=== PATIENT | female | born 1950 | race Caucasian/White ===

== ENCOUNTER 2023-11-27 22:30 | Inpatient (IN) | payer MEDICARE, OTHER, SELFPAY ==
[2023-11-27] VITALS (16 sets, daily range): BP systolic 69–121; BP diastolic 47–73; BMI 16.4
--- NOTE | 2023-11-27 20:17 | ED.GENMED ---
History of Present Illness
General
Chief Complaint: Heart Rate Problem
Time Seen by Provider: 11/27/23 20:17
Travel History
Have you had any contact with someone who has COVID-19?: No
Do you have any symptoms of coronavirus? Fever > 100 degrees, chills, cough, shortness of breath, sore throat, loss of taste or smell, muscle aches, or headache?: No
History of Present Illness
History of Present Illness:
HPI: EMS was called because patient's defibrillator went off. Her care is at [facility] but because she was hypotensive and tachycardic, EMS brought to the closest hospital which was [facility]. She has a history of coronary bypass. She is
not aware of a history of atrial fibrillation. She uses oxygen only at nighttime for history of COPD.
EXAM:
GENERAL: The patient appears chronically ill
HEENT: Moist oral mucosa
CARDIOVASCULAR: No murmurs, tachycardic heart rate, irregular rhythm, No chest wall tenderness, weak pulses noted
PULMONARY: No respiratory distress, breath sounds are clear and equal
ABDOMEN: Soft with no peritoneal signs, no tenderness
NEUROLOGIC: Excellent strength all extremities, no coordination deficits
PSYCHIATRIC: Appropriate mental status, normal insight and judgement however she seems to lack some knowledge of medical issues and medical history
EXTREMITIES: Nontender, no edema, moves all extremities equally
SKIN: No rash, no lesions
TIME OF INITIAL ENCOUNTER:
8:15 PM
NUMBER AND COMPLEXITY OF PROBLEMS ADDRESSED AT THE ENCOUNTER
� Chronic conditions affecting care: COPD, CHF, high blood pressure, CAD/CABG
� Acute Exacerbation and/or Progression of Chronic Illness: This is an acute problem
� Differential Diagnosis includes: AICD event, electrolyte abnormality, ACS, new atrial fibrillation with RVR
AMOUNT AND/OR COMPLEXITY OF DATA TO BE REVIEWED AND ANALYZED
� I performed an independent evaluation of and my interpretation is:
EKG: A-fib with RVR ventricular rate of 166, lateral ST abnormality that may be rate related, no old to compare
CT:
X-rays: The chest x-ray does show an abnormality in the right upper lobe however there is also superimposed chronic appearing disease.
Laboratory Studies: White count 17.2, hemoglobin 13.4, chemistries relatively unremarkable but troponin 0.126, BNP is 2000
Other:
� Review of other/old records: No old records for review in [facility] however we are in the process of contacting [facility] for records as of 8:20 PM
� Clinical information was obtained by an independent historian:
� Prescriptions/Medications Considered but not given: Considered digoxin however after discussion with cardiology we agreed to try amiodarone instead. I also considered antibiotics given the white count with chest x-ray read
however the patient has no pneumonia type of symptoms. Will defer need for antibiotics to hospitalist.
� Further testing considered but not performed:
RISK OF COMPLICATIONS AND/OR MORBIDITY OR MORTALITY OF PATIENT MANAGEMENT
� Social determinants of health affecting care: Lives at home
� Discussion with other providers: Discussed with Dr. Cook (see below), Dr. Hernandes for admission at 9:40 PM
� Escalation of care including admission/observation vs risk of discharge considered: We are attempting to obtain records from [facility]. It does not appear that she is on any anticoagulation. Fitfully does indicate the
patient received ATP for VT at about 5:30 PM this evening. Another attempt of ATP was performed by her device and then she received a 36 J shock. She arrived hypotensive for EMS and has been hypotensive here. She was on escalating doses of
Cardizem however this did not help the rate however blood pressure did seem to improve somewhat. I then tried beta-sasha and it seemed to help more that went down to the 130s. I consider digoxin however after discussion with Dr. Cook, we
decided to try amiodarone. She was given 2 - 500 mL saline boluses due to low blood pressure. She does have a history of heart failure and will try to hold off on further fluids.
Phy Exam
Physical Exam
Physical Exam:
See HPI
Course
Orders/Labs/Results
Orders:
Orders
11/27/23 20:09
Electrocardiogram (*1) Urgent
Reason for Study: Bradycardia / Tachycardia
11/27/23 20:10
EKG- Treatment ONCE
11/27/23 20:17
BNP [NT-proBNP] Urgent
Complete Blood Count/With Diff Urgent
Comprehensive Metabolic Panel Urgent
Magnesium Urgent
Troponin I Urgent
CR Chest Portable - 1 View Urgent
Comment:
Reason For Exam: sob
Reason Study Needs to be Portable: Unable to Transport
11/27/23 20:19
0.9% Sodium Chloride 500 ml [Nss] 500 ml IV BOLUS
Diltiazem HCl [Cardizem] 5 mg IV NOW STA
11/27/23 20:20
Diltiazem 125 mg/125 ml Nss [Cardizem] 125 mg in 125 ml .ROUTE .STK-MED
Diltiazem HCl [Cardizem] 25 mg .ROUTE .STK-MED ONE
11/27/23 20:30
Diltiazem 125 mg/125 ml Nss [Cardizem] 125 mg in 125 ml IV PER PROTOCOL
Initial dose in mg/hr, then titrate:: 5
Titrate to keep:: Heart rate 80-100 bpm
Titrate by mg/hr:: 5 mg/hr
Frequency of titrations (minutes):: 15
Maximum dose in mg/hr:: 15
11/27/23 21:10
Metoprolol [Lopressor] 5 mg .ROUTE .STK-MED ONE
11/27/23 21:11
Metoprolol [Lopressor] 2.5 mg IV NOW STA
11/27/23 21:17
Digoxin [Lanoxin] 125 mcg IV NOW STA
11/27/23 21:32
Electrocardiogram (*1) Urgent
Reason for Study: Atrial Fibrillation
EKG- Treatment ONCE
11/27/23 21:45
Amiodarone [Cordarone] 900 mg DEXTROSE 5% PVC-free BAG [D5W PVC-free BAG] 500 ml IV PER PROTOCOL
Initial Dose in mg/min:: 1
Duration of initial dose (hours):: 6
Subsequent dose in mg/min:: 0.5
Duration of subsequent dose (hours):: 18
Maximum dose in mg/min:: 1
Hold and notify provider if:: Heart rate < 60 BPM or SBP < 90 mmHg or MAP < 60 mmHg
Abnormal Lab Results
11/27/23
20:17
WBC 17.2 H 10^3/uL
(4.8-10.8)
RBC 4.06 L 10^6/uL
(4.20-5.40)
MCH 33.0 H pg
(27.0-31.0)
Abs Immat Gran (auto) 0.1 H 10^3/uL
(0-0.05)
Absolute Neuts (auto) 13.9 H 10^3/uL
(1.4-6.5)
Absolute Monos (auto) 1.5 H 10^3/uL
(0.1-0.6)
Neutrophils % 80.7 H %
(42.2-75.2)
Lymphocytes % 8.8 L %
(20.5-51.1)
Carbon Dioxide 21 L mmol/L
(22-30)
BUN 27 H mg/dl
(7-17)
Glucose 122 H mg/dl
(70-99)
Troponin I 0.126 H* ng/ml
11/27/23 20:17
11/27/23 20:17
Vital Signs
Initial and Last Documented VS:
Initial Vital Signs
Temp Pulse Resp BP
98.0 F 161 24 100/73
11/27/23 20:11/27/23 20:01 11/27/23 20:01 11/27/23 20:01
Last Documented Vital Signs
Temp Pulse Resp BP Pulse Ox
98.0 F 81 32 71/50 95
11/27/23 20:01 11/27/23 21:33 11/27/23 21:33 11/27/23 21:33 11/27/23 21:33
*Critical Care Note
Total Time (30-74mins, 75-104mins- exclusive of procedures): 65 minutes
comment:
The patient has remained hypotensive throughout much of her stay in the ED. We tried IV calcium channel sasha, IV beta-sasha, considered IV digoxin however after discussion with cardiology ultimately will be given amiodarone. She was given IV
fluids emergently as she was hypotensive. We also interrogated the device emergently. Vital signs were very closely monitored.
ED Attending Note
-
Portions of this chart may have been created with voice recognition software.� Occasional wrong word or��sound alike� substitutions may have occurred due to the inherent limitations of voice recognition software.
Discharge Plan
Departure
Patient Disposition: Admit
Date of Disposition: 11/27/23
Time of Disposition: 21:38
Presentation/result/management discussed w/ accepting MD/DO: Hospitalist
Discharge Problem:
Atrial fibrillation with rapid ventricular response
Prescriptions:
No Action
multivitamin Tablet
1 tab PO DAILY
atorvastatin 40 mg Tablet
40 mg PO HS
carvedilol 6.25 mg Tablet
6.25 mg PO BID
enalapril maleate 5 mg Tablet
5 mg PO BID
cilostazol 50 mg Tablet
50 mg PO BID
aspirin 81 mg Tablet,Delayed Release (Dr/Ec)
81 mg PO DAILY
citalopram 20 mg Tablet
30 mg PO HS
pantoprazole 40 mg Tablet,Delayed Release (Dr/Ec)
40 mg PO DAILY
furosemide 20 mg Tablet
20 mg PO DAILY
Interventions
Interventions:
*Risk Screen - Suicide Last Done: 11/27/23 20:01
*General Assessment Last Done: 11/27/23 20:01
*Neglect/Abuse Screening Last Done: 11/27/23 20:01
*ED COVID-19 Vaccine History Last Done: 11/27/23 20:01
ED- Cardiac Assessment Last Done: 11/27/23 20:46
ED- Pulmonary Assessment Last Done: 11/27/23 20:46
Discharge Date and Time
Print Language: WOLOF
[2023-11-27] MEDS: CARDIZEM 5 MG IV (20:21)
[2023-11-27] MEDS: NSS 500 IV (20:23)
[2023-11-27] MEDS: CARDIZEM 125 IV (20:23)
[2023-11-27 20:27] LABS: % Basophils 0.4 % (0-2); % Eosinophils 0.9 % (0-6); % Immature Granulocytes 0.3 % (0-0.5); % Lymphocytes 8.8 % (20.5-51.1); % Monocytes 8.9 % (1.7-9.3); % Neutrophils 80.7 % (42.2-75.2); Absolute Basophils 0.1 10^3/uL (0-0.2); Absolute Eosinophils 0.2 10^3/uL (0-0.7); Absolute Immature Granulocytes 0.1 10^3/uL (0-0.05); Absolute Lymphocytes 1.5 10^3/uL (1.2-3.4); Absolute Monocytes 1.5 10^3/uL (0.1-0.6); Absolute Neutrophils 13.9 10^3/uL (1.4-6.5); Hematocrit 38.2 % (37.0-47.0); Hemoglobin 13.4 g/dL (12.0-16.0); Mean Corp Hgb Conc. 35.1 g/dL (33.0-37.0); Mean Corpuscular Volume 94.1 fL (81.0-99.0); Mean Platelet Volume 9.1 fL (7.4-10.4); Nucleated Red Blood Cells % 0 %; Platelet Count 209 10^3/uL (130-400); Red Blood Cell Count 4.06 10^6/uL (4.20-5.40); Red Cell Dist. Width 12.2 % (11.5-14.5); White Blood Cell Count 17.2 10^3/uL (4.8-10.8)
[2023-11-27 20:40] LABS: ALT (SGPT) 15 U/L (0-35); AST (SGOT) 24 U/L (14-36); Albumin 3.8 g/dl (3.5-5.0); Alkaline Phosphatase 109 U/L (38-126); Blood Urea Nitrogen 27 mg/dl (7-17); Calcium 9.4 mg/dl (8.4-10.2); Carbon Dioxide 21 mmol/L (22-30); Chloride 101 mmol/L (98-107); Glucose 122 mg/dl (70-99); Magnesium 1.8 mg/dl (1.6-2.3); Potassium 3.6 mmol/L (3.5-5.1); Sodium 136 mmol/L (135-145); Total Protein 6.7 g/dl (6.3-8.2); eGFR > 60.00
[2023-11-27 20:56] LABS: Troponin I 0.126 ng/ml
[2023-11-27] MEDS: LOPRESSOR 2.5 MG IV (21:11)
[2023-11-27 21:13] LABS: NT-proBNP 2000 pg/ml
--- NOTE | 2023-11-27 21:40 | HPS.HSE ---
Family Physician
-
Family Physician:
Chief Complaint
-
atrial fib with RVR
History of Present Illness
73 year old with PMH for CAD, HTN, HLD, anxiety, GERD,COPD presented to us with as her Defib went off. Her HR was in 160's and BP low in 80's. patient denied any palpitation, chest pain, sob. denied NELSON, dizzy or syncopal episode. Patient denied
runny nose, congestion, cough. Patient denied abdominal pain, nausea, vomiting, diarrhea. Patient denied dysuria hematuria.
Patient uses 2 L of oxygen at nighttime. At present patient requiring 4 L of oxygen oxygenating 92-94.
Patient was noted A-fib with RVR on arrival. Patient received dose of Cardizem, digoxin with no relief in her symptoms. Patient also ordered amiodarone. Admitting for further management. at present HR controlled in 80's
Medical History
Past Medical History
Past Medical History: Reports Other
Additional Past Medical History:
Coronary artery disease
Hyperlipidemia
Hypertension
Depression
GERD
Past Surgical History: Reports Other
Additional Past Surgical History:
Coronary artery bypass graft
Social History
Tobacco: Smoker (2 to 3 cigarettes a week)
Alcohol: None
Drug: None
Personal:
Living: With Family
Family History
Family History: Not pertinent
Allergies / Home Medications
Allergies reflects when Allergies were last updated in [facility].
Home Medications with original date entered in [facility]
Allergy/Medication List:
Allergies
Allergy/AdvReac Type Severity Reaction Status Date / Time
No Known Allergies Allergy Unverified 11/27/23 20:12
Home Medications
aspirin 81 mg tablet,delayed release 81 mg PO DAILY 11/27/23
atorvastatin 40 mg tablet 40 mg PO HS 11/27/23
carvedilol 6.25 mg tablet 6.25 mg PO BID 11/27/23
cilostazol 50 mg tablet 50 mg PO BID 11/27/23
citalopram 20 mg tablet 30 mg PO HS 11/27/23
enalapril maleate 5 mg tablet 5 mg PO BID 11/27/23
furosemide 20 mg tablet 20 mg PO DAILY 11/27/23
multivitamin 1 tab PO DAILY 11/27/23
pantoprazole 40 mg tablet,delayed release 40 mg PO DAILY 11/27/23
Review of Systems
-
Constitutional: Reports No Symptoms
EENT: Reports No Symptoms
Respiratory: Reports No Symptoms
Cardiac: Reports No Symptoms
Abdomen/GI: Reports No Symptoms
: Reports No Symptoms
Musculoskeletal: Reports No Symptoms
Skin: Reports No Symptoms
Neurological: Reports No Symptoms
Endocrine: Reports No Symptoms
Hematologic/Lymphatic: Reports No Symptoms
Psych: Reports No Symptoms
Physical Exam
Vital Signs
Vital Signs
Temp Pulse Resp BP Pulse Ox
98.0 F 81 32 71/50 95
11/27/23 20:01 11/27/23 21:33 11/27/23 21:33 11/27/23 21:33 11/27/23 21:33
Physical Exam
General: Well Developed, Well Nourished and No Apparent Distress
HEENT: NormoCephalic, Moist mucous membranes and Atraumatic
Respiratory: Rales
Cardiac: S1/S2 and Regular Rhythm; No Murmur or Rub
GI: Soft, Non Tender, Non Distended and Normal Bowel Sounds; No Organomegaly
Rectal: Deferred by Provider
Musculoskeletal: No Clubbing, No Cyanosis and No Edema
Skin: No Rash
Neuro: AO x 3 and Nonfocal/grossly intact
Psych: Calm
Laboratory Results
-
11/27/23 20:17
11/27/23 20:17
Laboratory Results
Total Bilirubin 1.0 mg/dl (0.2-1.3) 11/27/23 20:17
AST 24 U/L (14-36) 11/27/23 20:17
ALT 15 U/L (0-35) 11/27/23 20:17
Alkaline Phosphatase 109 U/L (38-126) 11/27/23 20:17
Troponin I 0.126 ng/ml H* 11/27/23 20:17
Data Reviewed
-
Diagnostic Radiology: Report Reviewed by me
Lab Data: Labs Reviewed by me
Impression/Plan
-
# New onset atrial fib with RVR
-Received a dose of digoxin, Cardizem, metoprolol, Cardizem drip in ER
-at Present EKG with normal sinus rhythm
-EKG on arrival A-fib with RVR
-Pacemaker interrogated in the ER with VT and NSVT
-Amiodarone continued as per cardiology with PO overlap 200mg bid
-Eliquis 5 twice a day
-obtain ECHO
-Cardiology consult
# Acute on chronic hypoxic respiratory failure likely from pneumonia
-chest x ray with Right upper lobe airspace disease suspicious for pneumonia. Mild diffuse interstitial prominence may reflect pneumonitis. Cannot rule out component of underlying chronic interstitial lung disease.
-wbc 17.2
-patient is 02 dependant at home, uses 2l at night
-Started on IV ceftriaxone and doxycycline
-continue supplemental oxygen to keep sat >92
-wean as tolerated
-nebs prn for sob/wheezing
-Tylenol prn for fever
#elevated trop likely demand ischemia
-trop 0.126
-no c/of chest pain
-trend trop
#hxt of COPD
-not in acute exacerbation
-ctm
#hypotension/ hxt of htn
-BP soft in ER
-fluids continued
-hold enalapril and Coreg
-ctm
#questionable hxt of CHF
-BNP 2000
-not in acute exacerbation
-strict I &O
-daily weight
-obtain ECHO
-hold Lasix
#hxt of CAD
-aspirin continued
#HLD
-statin continued
#GERD
-PPI continued
#DVT prophylaxis
-Eliquis
#CODE status
-full code
[2023-11-27] MEDS: CORDARONE 518 MG IV (22:05)
--- NOTE | 2023-11-27 22:26 | W.PN.UPDATE ---
Update Note
Progress Note Update
This is an addendum to the H&P written by ASTRID White on 11/27/2023.
Patient seen and examined independently with PLACING JUDGE.� 73-year-old female past medical history of heart failure, presumed HFrEF with ICD, CAD status post CABG, PAD, anxiety/depression, presenting with ICD shock.� No symptoms preceding ICD shock.� No
symptoms currently.�
Patient was initially found to have heart rate in 160s.� EKG showed atrial fibrillation with RVR which is new onset.� Labs showing leukocytosis, cardiac BNP of 2000, troponin of 0.126.� Chest x-ray shows right upper lobe airspace disease suspicious
for pneumonia.
Interrogation of ICD revealed attempt of ATP at 17:04 and 17:09 then 36J.� EMS had given Cardizem although patient was hypotensive.� Patient was given IV fluids, doses of IV Cardizem and beta-sasha in ER without improvement.� She was also given
digoxin.� Cardiology recommended IV amiodarone drip with overlap of oral amiodarone.� Patient appears to be in sinus rhythm at this time.� Cardizem weaned off.� Eliquis to be started.� Can use as needed Lopressor as adjunct as needed.� Hold
enalapril, Lasix and Coreg.� Check echocardiogram.� Request records from [place] [facility].
Will start ceftriaxone/doxycycline for commune acquired pneumonia.
[2023-11-27] MEDS: ROCEPHIN 1000 MG IV (22:28)
[2023-11-27] MEDS: ELIQUIS 5 MG PO (22:28)
--- NOTE | 2023-11-27 23:36 | PTCARENOTE ---
pt stand by assist into 2246- admission completed. Amio gtt running.
[2023-11-27] MEDS: VIBRAMYCIN 260 MG IV (23:46)
[2023-11-28] VITALS (13 sets, daily range): BP systolic 78–155; BP diastolic 57–95; BMI 16.5; BMI 16.4
[2023-11-28] MEDS: NSS 1000 IV (00:49)
--- NOTE | 2023-11-28 03:12 | DOWNTIME ---
There was a [employer] Client [employer] Fitter Downtime on 11/27/2023 from 0100 to 11/28/2023 at 0300. Downtime documentation of patient's care, including medication administrations, has been reconciled in the electronic record per guidelines. Refer to the
patient's paper chart under the miscellaneous tab to see printed paper medication records and downtime forms.
[2023-11-28] MEDS: DUONEB 3 ML INH (04:07)
[2023-11-28] MEDS: TYLENOL 650 MG PO (04:49)
--- NOTE | 2023-11-28 04:53 | PTCARENOTE ---
Around 0310 pt c/o worsening SOB. On assessment, pt tachypneic with increased effort. Crackles can now be heard 1/2 way up b/l lungs with increased wheezing. TT DIRECTOR OF FINANCIAL REPORTING Amarilys George, NSS placed on standby - will monitor pressure closely. Respiratory
contacted for PRN breathing treatment.
At 0441, pt had 12 beat run of VT. Pt asymptomatic, BP 99/67.
Pt c/o 5/10 headache located in the front of head. PRN tylenol administered.
[2023-11-28 04:58] LABS: Hematocrit 36.2 % (37.0-47.0); Hemoglobin 12.4 g/dL (12.0-16.0); Mean Corp Hgb Conc. 34.3 g/dL (33.0-37.0); Mean Corpuscular Hgb 32.9 pg (27.0-31.0); Mean Platelet Volume 8.9 fL (7.4-10.4); Platelet Count 197 10^3/uL (130-400); Red Blood Cell Count 3.77 10^6/uL (4.20-5.40); Red Cell Dist. Width 12.3 % (11.5-14.5); White Blood Cell Count 13.7 10^3/uL (4.8-10.8)
[2023-11-28 05:24] LABS: Blood Urea Nitrogen 25 mg/dl (7-17); Calcium 9.1 mg/dl (8.4-10.2); Carbon Dioxide 24 mmol/L (22-30); Chloride 102 mmol/L (98-107); Estimated Creatinine Clearance 59 ml/min; Glucose 123 mg/dl (70-99); HDL Cholesterol 51 mg/dl; LDL Cholesterol, Calculated 60 mg/dl; Potassium 3.9 mmol/L (3.5-5.1); Sodium 136 mmol/L (135-145); Total Cholesterol 129 mg/dl (50-199); Triglyceride 94 mg/dl (10-149); Very Low Density Lipoprotein 18 mg/dl (0-30); eGFR > 60.00
[2023-11-28 05:55] LABS: TSH Reflex To Free T4 1.22 uIU/ml (0.47-4.68)
[2023-11-28] MEDS: ASPIR LOW (ENTERIC COATED) 81 MG PO (08:05)
[2023-11-28] MEDS: PLETAL 50 MG PO ×2 (08:05→19:25)
[2023-11-28] MEDS: ELIQUIS 5 MG PO (08:05)
[2023-11-28] MEDS: PROTONIX 40 MG PO (08:05)
--- NOTE | 2023-11-28 08:12 | W.PN.HOSP.TC ---
Today's Communication/Plan
-
see bold
Assessment / Plan
Assessment / Plan
Gen: NAD, AAOx3, appears chronically ill/malnourished.
Eyes: EOMI, PERRLA, no scleral icterus.
Neck: supple.
CV: RRR, +S1/S2, no m/r/g.
Resp: Bilateral end expiratory wheezes, slightly decreased air exchange
Abd: +BS, soft, NT, ND
Skin: No rashes.
Neuro: CN 2-12 intact, non-focal.
Psych: Normal mood and affect.
CXR: Right upper lobe airspace disease suspicious for pneumonia. Mild diffuse interstitial prominence may reflect pneumonitis. Cannot rule out component of underlying chronic interstitial lung disease.
Afib with RVR:
-ICD interrogation showed attempt of ATP @ 1704 and 1709 on 11/27/23. For formal interrogation today.
-EMS gave Cardizem but the patient became hypotensive. This was followed by IV fluids and IV Cardizem and beta-sasha in the ER without improvement. Patient also given digoxin.
-Patient was started on amiodarone gtt, continue
-cont Eliquis
-check echo
-discussed with cardiology
Elevated Trop:
-Trop 17.4
-started on Eliquis prior (no heparin gtt for now)
-h/o CAD, cont ASA/statin
-BB on hold with hypotension
-will need cath once medically optimized
Possible RUL PNA:
-Leukocytosis could be reactive, patient afebrile
-currently on Rocephin/Doxy
-check procal
Acute hypoxemic respiratory insufficiency:
-h/o 50 years tobacco abuse disorder
-with wheezing suspect acute COPD exac
-start Decadron 4mg IV Q6H
-Atrovent/Xopenex PRN (give both meds now)
-See plan for possible RUL PNA above
-c/s pulm
Other problems:
Likely h/o HFrEF: Check echo
CAD
HLD: Cont statin
GERD: Cont PPI
COPD
Essential hypertension: BB on hold with hypotension
FULL/Eliquis
Total time spent on today's encounter was 53 minutes which included time spent in counseling the patient/family regarding diagnosis and treatment plan as listed above, goals of care, and symptom management. Case was discussed with nursing staff,
specialists, and care coordinators/case management. All labs and imaging personally reviewed by me. Remainder the time spent in detailed review of previous records, lab data, imaging, and other medical provider documentation.
Anticipated Discharge: > 48 hours
Subjective/Interval History
-
Date of Service: November 28, 2023
Denies CP. c/o SOB. 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
Objective Data
-
Labs:
Laboratory Results
11/27/23 11/28/23
20:17 04:35
WBC 17.2 H 13.7 H
Hgb 13.4 12.4
Hct 38.2 36.2 L
Plt Count 209 197
Sodium 136 136
Potassium 3.6 3.9
Chloride 101 102
Carbon Dioxide 21 L 24
BUN 27 H 25 H
Creatinine 0.8 0.6
Glucose 122 H 123 H
Calcium 9.4 9.1
Total Bilirubin 1.0
AST 24
ALT 15
Alkaline Phosphatase 109
Vital Signs:
Vital Signs
Temp Pulse Resp BP Pulse Ox
98.3 F 74 24 121/76 98
11/28/23 07:46 11/28/23 08:00 11/28/23 07:46 11/28/23 07:48 11/28/23 07:48
I&O
11/27/23 11/28/23 11/29/23
06:59 06:59 06:59
Intake Total 480 / 480
Balance 480 / 480
--- NOTE | 2023-11-28 09:11 | CON.CAR ---
Addendum entered and electronically signed by Christa Simon PA-C 11/28/23 14:16:
Records obtained and reviewed from [facility] cardiology. Last echo from 2020 with EF 60 to 65%, mild MR, mild to moderate TR, RVSP 30 to 35 mmHg, trace AI. Noninvasive arterial Doppler from 2020 with findings suggestive of right iliac stenosis resulting
in mild hemodynamic impairment at rest and left popliteal/tibial stenosis resulting in moderate hemodynamic impairment at rest. CT of the chest without contrast from 02/2023 with interval development of new slightly spiculated 18 x 12 mm right upper
lobe nodule, with concern for primary bronchogenic carcinoma with several additional right lung nodules which have remained stable compared to prior from 2021. Office note from 06/19/2023 reviewed. Patient with prior ischemic cardiomyopathy with EF
as low as 25 to 30%, however subsequently normalized. She had CABG x 2 with SOLER to LAD and SVG to OM 04/2017 and underwent [employer] single-chamber ICD placement 06/2017. She has PAD on cilostazol, not felt to be candidate for
percutaneous stenting. By last device interrogation . She had previously been on amiodarone which had been discontinued in the setting of her underlying lung disease and absence of arrhythmia, however is noted if were to have recurrence of
arrhythmia would consider resuming.
Addendum entered and electronically signed by Isaias Lowery MD 11/28/23 10:36:
I saw and examined the patient.
The Admissions Recruiter's note was reviewed and I agree with the note.
Comment:
GEN: No distress, awake, Ox3
HEENT: supple, anicteric, mmm
LUNGS: bilat rhonchi
CV: Reg, S1/S2, 1/6 syst LSB, no gallop
ABD: soft, BS+, NT/ND
EXT: No edema
NEURO: Gross non-focal
SKIN: No rash
Plan:
She has a past medical history of coronary artery disease status post CABG, ICD, hypertension, COPD, followed at [place] who presents with her ICD firing for atrial fibrillation. She had ATP attempts and an ICD shock. She was placed on IV
amiodarone and troponin was found to be 17. She denies any chest pains or shortness of breath prior to her event. She states she overall has been relatively stable before this.
Cardiac troponin peaked at 17 and is improving. She is back in sinus rhythm now. ECG with normal sinus rhythm with anterolateral ST depression. She is currently pain-free.
Continue IV amiodarone. Continue aspirin. Will add back low-dose Coreg 3.125 mg twice daily and follow blood pressure.
I suspect she may be mildly volume overloaded will give Lasix 20 mg IV x 1.
Check echocardiogram today.
Will plan on cardiac catheterization in a.m. to evaluate coronary anatomy. Hold Eliquis.
Continue atorvastatin.
Original Note:
Consultation
Consultation Request
Date/Time Consultation Performed: 11/28/23
Requesting Provider: Dr. Deluna
Performing Provider: Christa Simon PA-C for Dr. Lowery
Reason for Consultation: ICD shock
Medical History
-
Chief Complaint: ICD shock
History of Present Illness:
Patient is a 73 yo F with PMH of CAD s/p CABG, presumed ICM s/p [employer] ICD, HTN,HLD, COPD with ongoing occasional tobacco use who presented to via EMS due to ICD shock. Patient states she returned home from vacation on Sunday. States
on Sunday she was sluggish and with upset stomach so was around the house all day. She states yesterday she was sitting drying silverware when suddenly she got shocked by her device. No preceding CP, SOB, lightheadedness/dizziness. She called EMS
and they brought her to due to 'traffic', although she states all of her care is at [place]. She was given cardizem en route due to elevated HR however was then noted to be hypotensive. Upon arrival to ER had device transmission which showed ATP
attempt at 17:04 and 17:09 followed by shock x1. By EKG was in narrow complex tachycardia consistent with afib with RVR. She was started on IV amiodarone. Trop up to 17 this morning. Remains without CP. Cardiology consulted for evaluation. She
states she was previously told by [facility]MS she was shocked once before, however did not feel it.
PMH:
CAD s/p CABG
presumed ICM s/p [employer] ICD
HTN
HLD
COPD
ongoing occasional tobacco use
Past Medical History
Past Medical History: Other (in HPI)
Social History
Tobacco: Smoker
Alcohol: None
Drug: None
Personal:
Living: With Family
Family History
Family History: CAD (DC in mother at 59)
Allergies / Home Medications
Allergy/AdvReac Type Severity Reaction Status Date / Time
No Known Allergies Allergy Unverified 11/27/23 20:12
�Medication �Instructions �Recorded �Confirmed �Type
aspirin 81 mg tablet,delayed 81 mg PO DAILY 11/27/23 11/27/23 History
release
atorvastatin 40 mg tablet 40 mg PO HS 11/27/23 11/27/23 History
carvedilol 6.25 mg tablet 6.25 mg PO BID 11/27/23 11/27/23 History
cilostazol 50 mg tablet 50 mg PO BID 11/27/23 11/27/23 History
citalopram 20 mg tablet 30 mg PO HS 11/27/23 11/27/23 History
enalapril maleate 5 mg tablet 5 mg PO BID 11/27/23 11/27/23 History
furosemide 20 mg tablet 20 mg PO DAILY 11/27/23 11/27/23 History
multivitamin 1 tab PO DAILY 11/27/23 11/27/23 History
pantoprazole 40 mg tablet,delayed 40 mg PO DAILY 11/27/23 11/27/23 History
release
Review of Systems
-
History Source: Patient
All other systems: Negative unless noted
Physical Exam
Vital Signs
Temp Pulse Resp BP Pulse Ox
98.3 F 74 24 121/76 98
11/28/23 07:46 11/28/23 08:00 11/28/23 07:46 11/28/23 07:48 11/28/23 07:48
Lab Results
11/28/23 04:35
11/28/23 04:35
Troponin I 17.400 ng/ml H* 11/28/23 04:35
Adv-C-Ctafsstwyaf Pept 2000 pg/ml 11/27/23 20:17
Physical Exam
General: Other (tachypneic, pursed lip breathing, on supp O2)
HEENT: Normocephalic, Anicteric and Moist Mucous Membranes
Respiratory: Wheezes
Cardiac: S1/S2 and Regular Rhythm
GI: Normal Bowel Sounds
Musculoskeletal: No Clubbing, No Cyanosis and No Edema
Skin: Warm and Dry
Neuro: AO x 3
Impression / Plan
-
Primary Supervising Librarian: Dr. Olivia of [facility]
Assessment:
Presentation with attempted ATP x2, then ICD shock
Hypotension
Atrial fibrillation with RVR on arrival, concern for inappropriate shock
Elevated troponin
Leukocytosis
CAD s/p CABG
presumed ICM s/p [employer] ICD
HTN
HLD
COPD, with likely acute exacerbation
ongoing occasional tobacco use
ECHO 11/28/23: pending
Plan:
-Patient presents with ICD shock. Transmission from ER showed attempted ATP x 2 followed by ICD shock x 1. Upon arrival patient was noted to be in atrial fibrillation with rapid ventricular response
-For formal device interrogation today
-Requested records from [facility] for review
-Currently in sinus rhythm with brief runs of A-fib/A. tach, as well as brief runs of wide-complex tachycardia, possible NSVT.
-Continue IV amiodarone. follow K/mag
-Holding Eliquis, dose given 11/27 AM. Would consider transitioning to IV heparin tonight in prep for cath
-Patient remains without chest pain, however EKG with lateral T wave depression and troponin up to 17. Will need cardiac catheterization, likely in a.m. procedure discussed with patient today
-On outpatient aspirin and cilostazol
-Check echo
-Outpatient carvedilol, Lasix, and enalapril currently on hold with hypotension on arrival.
-proBNP 1999. CXR without evidence of acute CHF.
-LDL 60 on lipitor 40mg HS, continue
-There was concern for pneumonia on arrival. She does report cough, however is afebrile. Pro-Adolfo pending. Currently on antibiotics. Primary service adding steroids, as concern for COPD exacerbation with diffuse wheezing, and pulmonary to
evaluate.
-tobacco cessation advised
-Discussed with nursing, hospitalist
Data Reviewed
-
EKG: Tracing Personally Visualized and interpreted
Radiology: Report Reviewed by me
Labs: Labs Reviewed by me
Old Records: Requested and Reviewed
[2023-11-28 09:45] LABS: Procalcitonin 0.58 ng/ml (0.0-0.25)
[2023-11-28] MEDS: ATROVENT NEBULES 0.5 MG INH (09:50)
[2023-11-28] MEDS: XOPENEX 1.25 MG INHALANT SOLUTION INH (09:50)
--- NOTE | 2023-11-28 10:02 | CM ---
Reviewed chart. Met with Mrs. Jimenez to review discharge plans. She states prior to admission she resides with her spouse in a two story townhouse with three steps to enter. She states she has a full flight of steps to get to bedroom/full
bathroom. She states she has a powder room on the first floor. She states prior to admission she was independent with ambulation and adls. She states she has home 02 at 2 liters that she uses at night. She states she has has [facility] in the
past. She states she has a prescription plan with [employer] and uses [facility]. We reviewed information of advanced directive. Gave her a copy of [place] Advanced Directive. Medical work-up in progress. The discharge plan is to
return home with her spouse when medically stable.
[2023-11-28] MEDS: DECADRON 4 MG IV ×3 (10:16→20:25)
[2023-11-28] MEDS: COREG 3.125 MG PO ×2 (10:50→19:25)
[2023-11-28] MEDS: VIBRAMYCIN 260 MG IV ×2 (11:50→22:43)
--- NOTE | 2023-11-28 12:02 | CON.PUL ---
Consultation
Consultation Request
Date/Time Consultation Requested: 11/28/23
Date/Time Consultation Performed: 11/28/23
Performing Provider: Kristina
Reason for Consultation: SOB
Medical History
-
History of Present Illness:
73 year old with PMH for CAD, HTN, HLD, anxiety, GERD, COPD presented to ER with defibrillator activation at home. In ER, she was noted to have HR in 160s and low systolic BP of 80s. Patient denied any active complaints including palpitations,
chest pain, or SOB.
She has a history of COPD, chronically using 2 L of oxygen at nighttime. At present patient requiring 4 L of oxygen oxygenating 92-94%.
Patient was noted A-fib with RVR on arrival. Patient received dose of Cardizem, digoxin with no relief in her symptoms. She is admitted to IVU.
CXR with diffuse lung changes, RUL opacity noted suspicious for PNA.
She follows with Dr Jacob Goyal.
Past Medical History
Past Medical History: Other (see list below)
Social History
Tobacco: Former Smoker
Alcohol: None
Drug: None
Family History
Family History: Reviewed & Not Pertinent
Allergies / Home Medications
Allergies
Allergy/AdvReac Type Severity Reaction Status Date / Time
No Known Allergies Allergy Unverified 11/27/23 20:12
Home Medications
�Medication �Instructions �Recorded �Confirmed �Last Taken �Type
aspirin 81 mg tablet,delayed 81 mg PO DAILY 11/27/23 11/27/23 11/27/23 History
release
atorvastatin 40 mg tablet 40 mg PO HS 11/27/23 11/27/23 11/26/23 History
carvedilol 6.25 mg tablet 6.25 mg PO BID 11/27/23 11/27/23 11/27/23 History
cilostazol 50 mg tablet 50 mg PO BID 11/27/23 11/27/23 11/27/23 History
citalopram 20 mg tablet 30 mg PO HS 11/27/23 11/27/23 11/26/23 History
enalapril maleate 5 mg tablet 5 mg PO BID 11/27/23 11/27/23 11/27/23 History
furosemide 20 mg tablet 20 mg PO DAILY 11/27/23 11/27/23 11/27/23 History
multivitamin 1 tab PO DAILY 11/27/23 11/27/23 11/27/23 History
pantoprazole 40 mg tablet,delayed 40 mg PO DAILY 11/27/23 11/27/23 11/27/23 History
release
Review of Systems
-
History Source: Patient
All other systems: Negative unless noted
Vitals / Labs / Diagnostic Testing
Vital Signs
Temp Pulse Resp BP Pulse Ox
98.4 F 78 22 122/72 97
11/28/23 11:21 11/28/23 11:15 11/28/23 11:21 11/28/23 10:50 11/28/23 11:21
Lab Data
11/28/23 04:35
11/28/23 04:35
Diagnostic Testing:
Physical Exam
-
HEENT: Normocephalic, Anicteric and Moist Mucous Membranes
Cardiovascular: S1/S2 and Regular Rhythm
Respiratory: Rales and Non-Labored Respirations
GI: Soft, Non Distended and Non Tender
Neurology: Awake, Alert, Oriented, AO x 3 and No Motor Deficits
Skin: Warm, Dry and Good Color
General: Comfortable and Other (NAD)
Assessment
-
73 year old with PMH for CAD, HTN, HLD, anxiety, GERD, COPD presented to ER with defibrillator activation at home. In ER, she was noted to have HR in 160s and low systolic BP of 80s. Patient was noted A-fib with RVR on arrival. Patient received
dose of Cardizem, digoxin with no relief in her symptoms. She is admitted to IVU. CXR with diffuse lung changes, RUL opacity noted suspicious for PNA. We are consulted for eval.
Defibrillator activation at home
A-fib with RVR
Mild congestive heart failure exacerbation, proBNP 1999
Elevated troponins
Conditions present prior to admission
COPD, on baseline O2 at night
Follows with Dr James-Margarita
RUL spiculated nodule known since 02/2023
Current smoker
CAD s/p CABG
ICM s/p [employer] ICD
Hypertension
Hyperlipidemia
Anxiety
GERD
Plan
Hypoxemia noted on arrival, she normally uses O2 only at night
She is on continuous need now
Prior history of lung disease is noted including COPD, current smoker
She follows with [facility], Dr James.
She has been told in the past she has COPD, she does not have frequent exacerbations and had not need prednisone/abx recently
She is not wheezing on exam
Suspect patient has underlying CHF, but superimposed AECOPD difficult to distinguish
She is placed on IV steroids empirically, can taper if improving
I would resume her home medications/inhalers
CXR obtained indicating diffuse bilateral interstitial opacities, no prior film for comparison
She has right upper lobe opacity noted on chest x-ray
Other imaging reviewed--report from [place] on the CT chest in February 2023 indicating there was presence of spiculated nodule on the right upper lobe
She is aware of this finding, and reportedly underwent attempted biopsy of nodule but could not be assessed. She states on repeat imaging, lesion was no longer present
This chest x-ray finding would warrant further CT chest imaging but can be done as an outpatient at [place] if patient prefers as she was currently undergoing workup there
Defibrillator activation at home, cardiology is consulted
She also has A-fib with RVR noted, placed on rate control medications
proBNP elevated, may consider diuresis
Cardiology following for further management
Smoking history noted
Smoking cessation encouraged
We will follow
Diagnostic Data
CXR 11/27/23: Right upper lobe airspace disease suspicious for pneumonia. Mild diffuse interstitial prominence may reflect pneumonitis. Cannot rule out component of underlying chronic interstitial lung disease.
OSH CT Chest 03/07/23: interval development of spiculated RUL nodule measuring 18 x 12mm; several noncalcified R lung nodules measuring 3mm have remained stable from prior CT 02/18/22
--- NOTE | 2023-11-28 12:23 | PTCARENOTE ---
Pt is AOx3, no complaints of pain or discomfort. VSS. NSR on tele monitor. Independent with care. ECHO completed today. Educated on NPO for tonight and cardiac catheterization technician tomorrow. Call simpson within reach.
[2023-11-28] MEDS: NSS IV (12:24)
[2023-11-28] MEDS: LASIX 20 MG IV (13:16)
[2023-11-28] MEDS: PACERONE 400 MG PO ×2 (17:35→22:10)
[2023-11-28 19:57] LABS: Urine Albumin Negative (Neg - Trace); Urine Bilirubin Negative (Negative); Urine Character Clear (Clear); Urine Color Yellow; Urine Glucose Negative (Negative); Urine Ketone Negative (Negative); Urine Leukocyte Negative (Negative); Urine Nitrite Negative (Negative); Urine Occult Blood Negative (Negative); Urine Specific Gravity 1.005 (<1.030); Urine Urobilinogen Negative (Neg - 1+)
[2023-11-28] MEDS: CELEXA 30 MG PO (22:08)
[2023-11-28] MEDS: LIPITOR 40 MG PO (22:08)
[2023-11-28] MEDS: STERILE WATER FOR INJECTION 10 ML IV (22:10)
[2023-11-28] MEDS: ROCEPHIN 1000 MG IV (22:11)
[2023-11-29] VITALS (14 sets, daily range): BP systolic 82–152; BP diastolic 59–88; BMI 16.4
[2023-11-29] MEDS: NSS IV (01:16)
--- NOTE | 2023-11-29 01:51 | PTCARENOTE ---
Pt received start of shift. HR SR w/ PACs. Pt anxious about cardiac cath in AM. Educated pt on procedure and NPO status at 0000. Reinforced purpose of Amio, IV steroids, and IV abx w/ pt. Pt denies any CP, worsening SOB, or lightheadedness/dizziness
at this time. Informed to notify RN if any changes, call simpson within reach.
[2023-11-29] MEDS: DECADRON 4 MG IV ×3 (03:25→20:04)
[2023-11-29 04:26] LABS: Hematocrit 38.1 % (37.0-47.0); Hemoglobin 12.8 g/dL (12.0-16.0); Mean Corp Hgb Conc. 33.6 g/dL (33.0-37.0); Mean Corpuscular Hgb 32.5 pg (27.0-31.0); Mean Corpuscular Volume 96.7 fL (81.0-99.0); Mean Platelet Volume 9.1 fL (7.4-10.4); Platelet Count 244 10^3/uL (130-400); Red Blood Cell Count 3.94 10^6/uL (4.20-5.40); Red Cell Dist. Width 11.9 % (11.5-14.5); White Blood Cell Count 9.3 10^3/uL (4.8-10.8)
[2023-11-29 04:53] LABS: Blood Urea Nitrogen 21 mg/dl (7-17); Calcium 9.4 mg/dl (8.4-10.2); Carbon Dioxide 25 mmol/L (22-30); Chloride 104 mmol/L (98-107); Estimated Creatinine Clearance 59 ml/min; Glucose 140 mg/dl (70-99); Potassium 4.2 mmol/L (3.5-5.1); Sodium 138 mmol/L (135-145); eGFR > 60.00
--- NOTE | 2023-11-29 08:00 | PTCARENOTE ---
Assumed care of patient at 0645. Assessment completed and documented in shift assessment.
Patient is AAOX3, pleasant and cooperative. Awaiting photofinishing laboratory worker. Replaced leaking PIV with new R FA #[id number]. No needs at this time.
[2023-11-29] MEDS: PROTONIX 40 MG PO (08:34)
[2023-11-29] MEDS: COREG 3.125 MG PO ×2 (08:34→20:02)
[2023-11-29] MEDS: PACERONE 400 MG PO ×3 (08:34→22:49)
[2023-11-29] MEDS: PLETAL 50 MG PO ×2 (08:34→20:03)
[2023-11-29] MEDS: ASPIR LOW (ENTERIC COATED) 81 MG PO (08:34)
--- NOTE | 2023-11-29 09:08 | W.PN.PUL3 ---
Today's Communication / Plan
-
Doing well today, remains on 4L, wean as tolerated
Wean IV steroids, she seems comfortable/improved
Cath planning today, we will await results
Outpatient pulmonary DU reviewed with patient for RUL nodule, Dr James at [facility]
Assessment
-
73 year old with PMH for CAD, HTN, HLD, anxiety, GERD, COPD presented to ER with defibrillator activation at home. In ER, she was noted to have HR in 160s and low systolic BP of 80s. Patient was noted A-fib with RVR on arrival. Patient received
dose of Cardizem, digoxin with no relief in her symptoms. She is admitted to IVU. CXR with diffuse lung changes, RUL opacity noted suspicious for PNA. We are consulted for eval.
Defibrillator activation at home
A-fib with RVR
Mild congestive heart failure exacerbation, proBNP 1999
Elevated troponins
Conditions present prior to admission
COPD, on baseline O2 at night
Follows with Dr James-Margarita
RUL spiculated nodule known since 02/2023
Current smoker
CAD s/p CABG
ICM s/p [employer] ICD
Hypertension
Hyperlipidemia
Anxiety
GERD
Plan
Hypoxemia noted on arrival, she normally uses O2 only at night
She is on continuous need now, 4L
Wean as tolerated with plan for reassessment of needs
Prior history of lung disease is noted including COPD, current smoker
She follows with [facility], Dr James.
She has been told in the past she has COPD, she does not have frequent exacerbations and had not need prednisone/abx recently
She is not wheezing on exam
Suspect patient has underlying CHF, but superimposed AECOPD difficult to distinguish
She is placed on IV steroids empirically, taper today as she seems improved
Resume her home medications/inhalers
CXR obtained indicating diffuse bilateral interstitial opacities, no prior film for comparison
She has right upper lobe opacity noted on chest x-ray
Other imaging reviewed--report from [place] on the CT chest in February 2023 indicating there was presence of spiculated nodule on the right upper lobe
She is aware of this finding, and reportedly underwent attempted biopsy of nodule but could not be assessed. She states on repeat imaging, lesion was no longer present
This chest x-ray finding would warrant further CT chest imaging but can be done as an outpatient at [place] if patient prefers as she was currently undergoing workup there
Defibrillator activation at home, cardiology is consulted
She also has A-fib with RVR noted, placed on rate control medications
proBNP elevated, may consider diuresis
Cardiology following for further management
Cath planning today
Smoking history noted
Smoking cessation encouraged
Outpatient pulmonary FU with Dr James at [facility]
Diagnostic Data
CXR 11/27/23: Right upper lobe airspace disease suspicious for pneumonia. Mild diffuse interstitial prominence may reflect pneumonitis. Cannot rule out component of underlying chronic interstitial lung disease.
[facility] CT Chest 03/07/23: interval development of spiculated RUL nodule measuring 18 x 12mm; several noncalcified R lung nodules measuring 3mm have remained stable from prior CT 02/18/22
ECHO 11/28/23- Normal left ventricular chamber size. Normal left ventricular wall thickness. Normal left ventricular systolic function. Left ventricular ejection fraction is 50-55% by Langston's method of discs. Normal regional wall motion. Stage II
diastolic dysfunction suggestive of abnormal relaxation and increased filling pressures. Normal right ventricular size and function. ICD wire seen in right ventricle. Moderate tricuspid regurgitation. Estimated pulmonary artery pressure of 43 mmHg
assuming a right atrial pressure of 8 mmHg.
Subjective Data
-
Date of Service:
Date of Service: November 29, 2023
Chief Complaint: Pulmonary Follow Up
Subjective:
doing well, no new complaints
for cath today
Objective Data
Data Reviewed
Vital Signs / I&O / Oxygen:
Vital Signs
Temp Pulse Resp BP Pulse Ox
98 F 81 22 114/76 90
11/29/23 07:47 11/29/23 08:34 11/29/23 07:47 11/29/23 08:34 11/29/23 07:47
Intake and Output
11/28/23 11/29/23 11/30/23
06:59 06:59 06:59
Intake Total 480 / 480 240 / 240
Output Total 300 / 300
Balance 480 / 480 -60 / -60
SaO2 90
Nasal Cannula flow liters per 4
minute
Physical Exam
General: Comfortable and Other (NAD)
HEENT: Normocephalic, Anicteric and Moist Mucous Membranes
Cardiovascular: S1-S2 and Regular Rhythm
Respiratory: Clear (overall decreased) and Non-Labored Respirations
GI: Soft, Non Distended, Non Tender and Normal Bowel Sounds
Neurology: Awake, Alert, Oriented, AO x 3 and No Motor Deficits
Skin: Warm, Dry and Good Color
Labs/Micro/Reports
Lab Data
11/29/23 03:44
11/29/23 03:44
[2023-11-29] MEDS: VIBRAMYCIN 260 MG IV ×2 (10:52→22:51)
--- NOTE | 2023-11-29 12:00 | W.PN.HOSP.TC ---
Addendum entered and electronically signed by Mark Mccain MD 11/29/23 14:24:
Sepsis, POA, due to PNA
Addendum entered and electronically signed by Mark Mccain MD 11/29/23 14:12:
Moderate protein calorie malnutrition
Original Note:
Today's Communication/Plan
-
see bold
Assessment / Plan
Assessment / Plan
Gen: remains NAD, AAOx3, appears chronically ill/malnourished.
Eyes: EOMI, PERRLA, no scleral icterus.
Neck: supple.
CV: irreg/irreg, +S1/S2, no m/r/g.
Resp: CTAB
Abd: +BS, soft, NT, ND
Skin: No rashes.
Neuro: CN 2-12 intact, non-focal.
Psych: Normal mood and affect.
CXR: Right upper lobe airspace disease suspicious for pneumonia. Mild diffuse interstitial prominence may reflect pneumonitis. Cannot rule out component of underlying chronic interstitial lung disease.
Echo: EF 50-55%, G2DD. Normal right ventricular size and function. ICD wire seen in right ventricle. Moderate tricuspid regurgitation. Estimated pulmonary artery pressure of 43mmHg assuming a right atrial pressure of 8 mmHg.
Afib with RVR:
-ICD interrogation showed attempt of ATP @ 1704 and 1709 on 11/27/23. For formal interrogation today.
-EMS gave Cardizem but the patient became hypotensive. This was followed by IV fluids and IV Cardizem and beta-sasha in the ER without improvement. Patient also given digoxin.
-was on amiodarone gtt, now transitioned to PO Amio
-cont Eliquis
Acute NSTEMI:
-Trop peaked 17.4
-started on Eliquis prior (no heparin gtt for now)
-h/o CAD, cont ASA/statin/BB
-for cardiac cath as per nursing
Possible RUL PNA:
-Leukocytosis could have been reactive, now resolved
-patient afebrile
-Procal minimally elevated
-Considering minimally elevated procalcitonin and resolution of leukocytosis on antibiotic therapy it is reasonable to complete 5 to 7 days of antibiotics.
-currently on Rocephin/Doxy
Acute hypoxemic respiratory insufficiency due to acute COPD Exac:
-h/o 50 years tobacco abuse disorder
-cont Decadron 4mg IV Q6H
-Atrovent/Xopenex PRN
-See plan for possible RUL PNA above
-pulm following
CAD:
-note, h/o CABG x 2 with SOLER to LAD and SVG to OM 04/2017
Chronic HFrEF (now with recovered EF):
-s/p [employer] single-chamber ICD placement 06/2017
Other problems:
HLD: Cont statin
GERD: Cont PPI
Essential hypertension: cont BB with holding parameters
FULL/Eliquis
Total time spent on today's encounter was 50 minutes which included time spent in counseling the patient/family regarding diagnosis and treatment plan as listed above, goals of care, and symptom management. Case was discussed with nursing staff,
specialists, and care coordinators/case management. All labs and imaging personally reviewed by me. Remainder the time spent in detailed review of previous records, lab data, imaging, and other medical provider documentation.
Anticipated Discharge: > 48 hours
Subjective/Interval History
-
Date of Service: November 29, 2023
Denies CP/SOB.
Objective Data
-
Labs:
Laboratory Results
11/29/23
03:44
WBC 9.3
Hgb 12.8
Hct 38.1
Plt Count 244 D
Sodium 138
Potassium 4.2
Chloride 104
Carbon Dioxide 25
BUN 21 H
Creatinine 0.5 L
Glucose 140 H
Calcium 9.4
Vital Signs:
Vital Signs
Temp Pulse Resp BP Pulse Ox
98.1 F 86 16 88/68 94
11/29/23 11:22 11/29/23 11:18 11/29/23 11:22 11/29/23 11:18 11/29/23 11:22
I&O
11/28/23 11/29/23 11/30/23
06:59 06:59 06:59
Intake Total 480 / 480 240 / 240
Output Total 300 / 300
Balance 480 / 480 -60 / -60
--- NOTE | 2023-11-29 13:30 | PTCARENOTE ---
Patient taken to lab support service tech for cardiac cath.
--- NOTE | 2023-11-29 13:50 | PN.CDI ---
CDI
- -
CDI:
Physician Documentation Request
Admit Date: 11/27/23 22:30
Dear Doctor Kalyn,
Patient admitted with atrial fib with RVR.
11/27 Nutrition note, 'Due to suspected estimated energy intakes of less than or equal to 75% for greater than or equal to 1 month and observations noted above, pt meeting criteria for moderate protein/calorie malnutrition (ASPEN/AND guidelines,
chronic illness).
Please provide in your progress note the diagnosis associated with the above findings and your assessment:
Moderate protein calorie malnutrition
Mild protein calorie malnutrition
Other
[place] Criteria ([facility] Hospitalist 2017)
2 or more criteria must be present for either
non severe or severe malnutrition
Note that the criteria differs related to the
presence of an acute or chronic illness
Chronic Illness
Energy Intake Non Severe: <75% for >1 month
Severe: <75% for >1 month
Weight Loss Non Severe: 5% over 1 month
7.5% over 3 months
10% over 6 months
20% over 1 year
Severe: >5% over 1 month
>7.5% over 3 months
>10% over 6 months
>20% over 1 year
Body Fat Non Severe: Mild Loss
Severe: Severe Loss
Muscle Mass Non Severe: Mild Loss
Severe: Severe Loss
Fluid Accumulation Non Severe: Mild Accumulation
Severe: Moderate to severe
accumulation
Reduced Copyright Clerk Strength Non Severe: N/A
Severe: Measurably reduced
Use of terms such as suspected, likely, concern for, or probable (associated with a specific diagnosis that is being evaluated, monitored, or treated as if it exists) are acceptable and can be coded in the inpatient setting, when documented at the
time of discharge.
Thank you,
Magui LEZAMA,RN,CCDS
CDI Specialist
Available via tiger text
Please use your independent medical judgment in providing your response.
--- NOTE | 2023-11-29 13:58 | PN.CDI ---
CDI
- -
CDI:
Physician Documentation Request
Admit Date: 11/27/23 22:30
Dear Doctor Kalyn,
Patient admitted with atrial fib with RVR.
11/28 PN, 'Possible RUL PNA....Considering minimally elevated procalcitonin and resolution of leukocytosis on antibiotic therapy it is reasonable to complete 5 to 7 days of antibiotics-currently on Rocephin/Doxy.'
11/26 Chest x-ray: Right upper lobe airspace disease suspicious for pneumonia.
On admission, WBC 17.2, HR> 90 and RR> 20.
Please clarify which of the following most accurately describes the status of the patient's infection:
Sepsis, POA
Pneumonia only
Other
Sepsis
- Systemic manifestations of infection, with 2 or more SIRS criteria which include:
- Fever >100.4 degrees F or hypothermia < 96.8 degrees F
- Leukocytosis - WBC > 12,000 or leukopenia - WBC < 4,000 or > 10% bands
- Tachycardia > 90 beats per minute
- Tachypnea - RR > 20 breaths per minute or PaCO2 , 32mmHg
Source: Merck Manual 2013
- Indicate the known or suspected organism
- Indicate the known or suspected underlying infection, such as UTI, pneumonia or cellulitis
Localized Infection Only, Without Systemic Illness
- indicate the site/source, such as pneumonia
Other
Unable to Determine
Use of terms such as suspected, likely, concern for, or probable (associated with a specific diagnosis that is being evaluated, monitored, or treated as if it exists) are acceptable and can be coded in the inpatient setting, when documented at the
time of discharge.
Thank you,
Magui Adames BSN,RN,CCDS
CDI Specialist
Available via [employer] text
Please use your independent medical judgment in providing your response.
[2023-11-29 15:34] LABS: ACT-LR - POC 160 Seconds (116-155)
--- NOTE | 2023-11-29 16:16 | ITS.CL.CATH ---
Assistant Service Manager - Catheterization
Cardiac Catheterization
Procedure Report:
LEFT AND RIGHT HEART CATHETERIZATION
Date of Procedure: November 29, 2023
Referring: Moe Lowery
PROCEDURES:
1. Left heart catheterization, coronary angiogram.
2. Right heart catheterization.
3. Ultrasound-guided access.
INDICATION: Patient is a 73-year-old female with past medical history of hypertension, hyperlipidemia, tobacco abuse with current smoking, coronary artery disease status post coronary artery bypass grafting with SOLER to LAD and saphenous vein graft
to OM in April 2017 at [facility] with prior ischemic cardiomyopathy and EF as low as 25 to 30%, since then recovered status post [employer] single-chamber ICD placed in June 2017, significant peripheral artery disease with
noninvasive arterial Dopplers from 2020 showing concern for possible right iliac stenosis resulting in mild hemodynamic impairment at rest and left popliteal/tibial stenosis resulting in moderate hemodynamic impairment at rest, CT of the chest
without contrast from 02/2023 with interval development of new slightly spiculated 18 x 12 mm right upper lobe nodule, with concern for primary bronchogenic carcinoma with several additional right lung nodules which have remained stable compared to
prior from 2021 who presented this admission with ICD firing for atrial fibrillation after multiple ATP attempts and an ICD shock with peak troponin of 17 who is now being referred for a left heart catheterization. Echocardiogram this admission
showing LVEF of 50 to 55% without regional wall motion abnormalities.
ACCESS:
1. Left radial artery, 6 Cambodian sheath, under ultrasound guidance. Given significant left subclavian tortuosity which prevented torquing of catheters to selectively engage with the saphenous vein graft and [place] coronary arteries, this access was
aborted and left common femoral arterial access was obtained.
2. Right common femoral vein, 6 Cambodian sheath, under ultrasound-guidance using a micropuncture kit.
3. Left common femoral artery, 5 Cambodian sheath, under ultrasound guidance using a micropuncture kit
HEMODYNAMICS : (mmHg)
RA (m) : 6
RV (s/d,m) : 39/4, 10
PA (s/d, m) : 39/20, 20
PCWP (m) : 18
PA saturation: 66.9% on 2 L of oxygen via nasal cannula
AO saturation: 88.8% on 2 L of oxygen via nasal cannula
RA saturation: 64% on 2 L of oxygen via nasal cannula
Cardiac Output : 4.13 L/min
Cardiac Index : 2.89 L/min/m-2
Systemic vascular resistance: 2128 dsc^(-5)
Pulmonary vascular resistance: 2.90 petty unit
Heart rate: 85 bpm
AO (s/d) : 175/60
LV (s/d) : 175/9
LVEDP : 30
-Left subclavian artery pressure of 133/73 (about a 60 mmHg difference in systolic compared to central aortic pressure)
- upper extremity noninvasive blood pressure of 91/67 with simultaneous central aortic pressure of 175/69 (about a 85 mmHg difference in systolic in the right upper extremity compared to central aortic pressure)
-Left femoral artery pressure invasively of 174/74
CORONARY FINDINGS:
DOMINANCE: Right
LEFT MAIN: Despite using 5 Cambodian diagnostic JL 4 and JL 3.5 and AL-1 with could not selectively engage the left coronary artery. Heavily calcified artery with presumed distal left main occlusion based on nonselective shot
LEFT ANTERIOR DESCENDING: We could not fill the left anterior descending artery antegradely due to a presumed distal left main calcified occlusion. There is retrograde filling of the LAD and diagonal branches noted during the injection of the
saphenous vein graft which was the OM. SOLER graft is also widely patent with competitive flow noted.
CIRCUMFLEX: We could not fill the left circumflex antegradely due to a presumed distal left main calcified occlusion. Saphenous vein graft to OM is widely patent and backfills into the [place] left circumflex artery and other smaller branches.
RIGHT CORONARY ARTERY: The right coronary artery has a 90% calcified ostial to proximal lesion with a chronic total occlusion in the proximal to mid RCA with [id number] collaterals.
GRAFT ANGIOGRAPHY:
1. SOLER graft to LAD is widely patent with competitive flow noted.
2. Saphenous vein graft to OM is widely patent. Saphenous vein graft was selectively engaged using a 5 Cambodian JR4 diagnostic catheter
SEDATION: 104 minutes of procedural sedation was utilized. An independent medical auditor was present to assist with and help manage the patient's level of consciousness and physiologic status.
RADIATION SUMMARY: Fluoro Time (min): 21.2, Dose (mGy): 408.9, DAP (Gy.cm2) : 34.4
Closure Device: 1. Vascular band was placed over the left radial artery access with 12 cc of air.
2. Manual pressure was held at the right common femoral venous access site in the left common femoral arterial access site with successful hemostasis (final ACT was 160ms).
CONCLUSIONS
1. Severe [place] coronary artery disease with heavily calcified coronary arteries.
2. SOLER graft and saphenous vein graft to OM are patent.
3. Elevated right and left-sided filling pressures with normal cardiac output and significantly elevated systemic vascular resistance.
4. Left subclavian artery pressure of 133/73 (about a 60 mmHg difference in systolic compared to central aortic pressure)
5. Upper extremity noninvasive blood pressure of 91/67 with simultaneous central aortic pressure of 175/69 (about a 85 mmHg difference in systolic in the right upper extremity compared to central aortic pressure)
6. Left femoral artery pressure invasively of 174/74.
RECOMMENDATIONS
1. Management of underlying atrial fibrillation with RVR and adjustments to ICD settings per electrophysiology recommendations.
2. Goal-directed medical therapy for coronary artery disease and recovered ischemic cardiomyopathy. Diuresis to improve filling pressures.
3. Aggressive management of cardiovascular risk factors.
4. Very strongly encourage complete smoking cessation.
5. Given significant pressure differential in bilateral upper extremity, consider outpatient imaging of bilateral carotid arteries and subclavian arteries.
6. Wean radial band per protocol. Bedrest per protocol
Copy to: Moe Lowery
Sharlene Mason MD, FACC, [facility]
[2023-11-29 19:21] LABS: Hepatitis C Antibody Negative (Negative)
[2023-11-29] MEDS: CELEXA 30 MG PO (22:49)
[2023-11-29] MEDS: LIPITOR 40 MG PO (22:50)
[2023-11-29] MEDS: ROCEPHIN 1000 MG IV (22:51)
[2023-11-29] MEDS: STERILE WATER FOR INJECTION 10 ML IV (22:51)
--- NOTE | 2023-11-29 23:08 | PTCARENOTE ---
Pt received at start of shift, HR SR w/ PACs. L radial dressing CDI, no hematoma, radial pulse palpable. B/l groin dressings CDI, no hematomas, pedal pulses palpable. Pt educated on plan of care, pt states 'I better be let out of here tomorrow or
I'm walking out anyway'. Reinforced importance of smoking cessation w/ pt. Reviewed activity restrictions post-cath w/ pt, pt states understanding. Pt denies any CP, SOB, or lightheadedness/dizziness at this time. informed to notify RN if any
changes, call simpson within reach.
[2023-11-30 04:19] VITALS: BP 116/70
[2023-11-30 05:21] LABS: Blood Urea Nitrogen 25 mg/dl (7-17); Calcium 9.2 mg/dl (8.4-10.2); Carbon Dioxide 24 mmol/L (22-30); Chloride 107 mmol/L (98-107); Estimated Creatinine Clearance 59 ml/min; Glucose 110 mg/dl (70-99); Hematocrit 34.5 % (37.0-47.0); Hemoglobin 11.7 g/dL (12.0-16.0); Mean Corp Hgb Conc. 33.9 g/dL (33.0-37.0); Mean Corpuscular Hgb 32.9 pg (27.0-31.0); Mean Corpuscular Volume 96.9 fL (81.0-99.0); Mean Platelet Volume 8.8 fL (7.4-10.4); Platelet Count 261 10^3/uL (130-400); Red Blood Cell Count 3.56 10^6/uL (4.20-5.40); Red Cell Dist. Width 11.9 % (11.5-14.5); Sodium 139 mmol/L (135-145); White Blood Cell Count 15.5 10^3/uL (4.8-10.8); eGFR > 60.00
[2023-11-30 05:40] VITALS: BMI 16.8
[2023-11-30 07:27] VITALS: BP 122/71
[2023-11-30] MEDS: DECADRON 4 MG IV (08:34)
[2023-11-30] MEDS: FLUSH (NSS) 1 FLUSH IV (08:35)
[2023-11-30] MEDS: PROTONIX 40 MG PO (08:36)
[2023-11-30] MEDS: PACERONE 400 MG PO (08:36)
[2023-11-30] MEDS: COREG 3.125 MG PO ×2 (08:37→20:41)
[2023-11-30] MEDS: ASPIR LOW (ENTERIC COATED) 81 MG PO (08:37)
[2023-11-30] MEDS: PLETAL 50 MG PO ×2 (08:37→20:40)
--- NOTE | 2023-11-30 09:10 | W.PN.PUL3 ---
Today's Communication / Plan
-
Cath results reviewed, nothing to do in terms of pulmonary disease
She is now on room air, 95%
Transition IV steroids to PO with taper at discharge
Resume home inhalers
Can follow up with Dr James at [facility] for RUL nodule on discharge, she has appt in December
Discharge planning per team
We will sign off at this time, please call with questions
Assessment
-
73 year old with PMH for CAD, HTN, HLD, anxiety, GERD, COPD presented to ER with defibrillator activation at home. In ER, she was noted to have HR in 160s and low systolic BP of 80s. Patient was noted A-fib with RVR on arrival. Patient received
dose of Cardizem, digoxin with no relief in her symptoms. She is admitted to IVU. CXR with diffuse lung changes, RUL opacity noted suspicious for PNA. We are consulted for eval.
Defibrillator activation at home
A-fib with RVR
Mild congestive heart failure exacerbation, proBNP 1999
Elevated troponins
Conditions present prior to admission
COPD, on baseline O2 at night
Follows with Dr Gauthier
RUL spiculated nodule known since 02/2023
Current smoker
CAD s/p CABG
ICM s/p [employer] ICD
Hypertension
Hyperlipidemia
Anxiety
GERD
Plan
Hypoxemia noted on arrival, she normally uses O2 only at night
She is weaned off oxygen to room air
Prior history of lung disease is noted including COPD, current smoker
She follows with [facility], Dr James.
She has been told in the past she has COPD, she does not have frequent exacerbations and had not need prednisone/abx recently
She is not wheezing on exam
Suspect patient has underlying CHF, but superimposed AECOPD difficult to distinguish
She is placed on IV steroids empirically, transition to PO today
Resume her home medications/inhalers
CXR obtained indicating diffuse bilateral interstitial opacities, no prior film for comparison
She has right upper lobe opacity noted on chest x-ray
Other imaging reviewed--report from [place] on the CT chest in February 2023 indicating there was presence of spiculated nodule on the right upper lobe
She is aware of this finding, and reportedly underwent attempted biopsy of nodule but could not be assessed. She states on repeat imaging, lesion was no longer present
This chest x-ray finding would warrant further CT chest imaging but can be done as an outpatient at [place] if patient prefers as she was currently undergoing workup there
Defibrillator activation at home, cardiology is consulted
She also has A-fib with RVR noted, placed on rate control medications
proBNP elevated, may consider diuresis
Cardiology following for further management
Cath completed, results reviewed below (PA pressures are improved compared to TTE)
Smoking history noted
Smoking cessation encouraged
Outpatient pulmonary FU with Dr James at [facility]
Diagnostic Data
CXR 11/27/23: Right upper lobe airspace disease suspicious for pneumonia. Mild diffuse interstitial prominence may reflect pneumonitis. Cannot rule out component of underlying chronic interstitial lung disease.
[facility] CT Chest 03/07/23: interval development of spiculated RUL nodule measuring 18 x 12mm; several noncalcified R lung nodules measuring 3mm have remained stable from prior CT 02/18/22
ECHO 11/28/23- Normal left ventricular chamber size. Normal left ventricular wall thickness. Normal left ventricular systolic function. Left ventricular ejection fraction is 50-55% by Langston's method of discs. Normal regional wall motion. Stage II
diastolic dysfunction suggestive of abnormal relaxation and increased filling pressures. Normal right ventricular size and function. ICD wire seen in right ventricle. Moderate tricuspid regurgitation. Estimated pulmonary artery pressure of 43 mmHg
assuming a right atrial pressure of 8 mmHg.
RHC/LHC 11/29/23- RA (m) : 6 - RV (s/d,m) : 39/4, 10 - PA (s/d, m) : 39/20, 20 - PCWP (m) : 18
PA saturation: 66.9% on 2 L of oxygen via nasal cannula - AO saturation: 88.8% on 2 L of oxygen via nasal cannula - RA saturation: 64% on 2 L of oxygen via nasal cannula
Cardiac Output : 4.13 L/min - Cardiac Index : 2.89 L/min/m-2
Systemic vascular resistance: 2128 dsc^(-5) - Pulmonary vascular resistance: 2.90 petty unit
Heart rate: 85 bpm - AO (s/d) : 175/60 - LV (s/d) : 175/9 - LVEDP : 30
Left subclavian artery pressure of 133/73 (about a 60 mmHg difference in systolic compared to central aortic pressure), upper extremity noninvasive blood pressure of 91/67 with simultaneous central aortic pressure of 175/69 (about a 85 mmHg
difference in systolic in the right upper extremity compared to central aortic pressure); Left femoral artery pressure invasively of 174/74
Subjective Data
-
Date of Service:
Date of Service: November 30, 2023
Chief Complaint: Pulmonary Follow Up
Subjective:
no acute events ON, remains stable
no new complaints
wants to go home
post cath, results reviewed
Objective Data
Data Reviewed
Vital Signs / I&O / Oxygen:
Vital Signs
Temp Pulse Resp BP Pulse Ox
98.4 F 96 18 121/72 98
11/30/23 07:24 11/30/23 08:37 11/30/23 07:24 11/30/23 08:37 11/30/23 07:24
Intake and Output
11/29/23 11/30/23 12/01/23
06:59 06:59 06:59
Intake Total 240 / 240 480 / 480
Output Total 300 / 300
Balance -60 / -60 480 / 480
SaO2 98
Nasal Cannula flow liters per 4
minute
Physical Exam
General: Comfortable and Other (NAD)
HEENT: Normocephalic, Anicteric and Moist Mucous Membranes
Cardiovascular: S1-S2 and Regular Rhythm
Respiratory: Clear (overall decreased) and Non-Labored Respirations
GI: Soft, Non Distended, Non Tender and Normal Bowel Sounds
Neurology: Awake, Alert, Oriented, AO x 3 and No Motor Deficits
Skin: Warm, Dry and Good Color
Labs/Micro/Reports
Lab Data
11/30/23 04:32
11/30/23 04:32
--- NOTE | 2023-11-30 09:11 | W.PN.HOSP.TC ---
Today's Communication/Plan
-
see bold
Assessment / Plan
Assessment / Plan
Gen: continues to remain NAD, AAOx3, appears chronically ill/malnourished.
Eyes: EOMI, PERRLA, no scleral icterus.
Neck: supple.
CV: RRR, +S1/S2, no m/r/g.
Resp: faint expiratory wheezes
Abd: +BS, soft, NT, ND
Skin: No rashes.
Neuro: CN 2-12 intact, non-focal.
Psych: Normal mood and affect.
CXR: Right upper lobe airspace disease suspicious for pneumonia. Mild diffuse interstitial prominence may reflect pneumonitis. Cannot rule out component of underlying chronic interstitial lung disease.
Echo: EF 50-55%, G2DD. Normal right ventricular size and function. ICD wire seen in right ventricle. Moderate tricuspid regurgitation. Estimated pulmonary artery pressure of 43mmHg assuming a right atrial pressure of 8 mmHg.
Cardiac cath (LHC/RHC) 11/29/23:
1. Severe cheesh-na coronary artery disease with heavily calcified coronary arteries.
2. SOLER graft and saphenous vein graft to OM are patent.
3. Elevated right and left-sided filling pressures with normal cardiac output and significantly elevated systemic vascular resistance.
4. Left subclavian artery pressure of 133/73 (about a 60 mmHg difference in systolic compared to central aortic pressure)
5. Upper extremity noninvasive blood pressure of 91/67 with simultaneous central aortic pressure of 175/69 (about a 85 mmHg difference in systolic in the right upper extremity compared to central aortic pressure)
6. Left femoral artery pressure invasively of 174/74.
Afib with RVR:
-ICD interrogation showed attempt of ATP @ 1704 and 1709 on 11/27/23. For formal interrogation today.
-EMS gave Cardizem but the patient became hypotensive. This was followed by IV fluids and IV Cardizem and beta-sasha in the ER without improvement. Patient also given digoxin.
-was on amiodarone gtt, now transitioned to PO Amio
-cont Eliquis
Acute NSTEMI:
-Trop peaked 17.4
-started on Eliquis prior (no heparin gtt for now)
-h/o CAD, cont ASA/statin/BB
-cardiac cath above
Sepsis, POA, due to RUL PNA:
-Leukocytosis could have been reactive and resolved. Recurrent leukocytosis is likely steroid .induced
-patient afebrile
-Procal minimally elevated
-Considering minimally elevated procalcitonin and resolution of leukocytosis on antibiotic therapy it is reasonable to complete 5 to 7 days of antibiotics.
-repeat CXR
-currently on Rocephin/Doxy
Acute hypoxemic respiratory insufficiency due to acute COPD Exac:
-h/o 50 years tobacco abuse disorder
-cont Decadron 4mg IV Q12H
-Atrovent/Xopenex PRN
-See plan for possible RUL PNA above
-pulm following
CAD:
-note, h/o CABG x 2 with SOLER to LAD and SVG to OM 04/2017
Chronic HFrEF (now with recovered EF):
-s/p [employer] single-chamber ICD placement 06/2017
Other problems:
HLD: Cont statin
GERD: Cont PPI
Essential hypertension: cont BB
Moderate protein calorie malnutrition
Discussed with cardiology
FULL/Eliquis
Total time spent on today's encounter was 51 minutes which included time spent in counseling the patient/family regarding diagnosis and treatment plan as listed above, goals of care, and symptom management. Case was discussed with nursing staff,
specialists, and care coordinators/case management. All labs and imaging personally reviewed by me. Remainder the time spent in detailed review of previous records, lab data, imaging, and other medical provider documentation.
Anticipated Discharge: 24 - 48 hours
Subjective/Interval History
-
Date of Service: November 30, 2023
Denies CP/SOB.
Objective Data
-
Labs:
Laboratory Results
11/30/23
04:32
WBC 15.5 H
Hgb 11.7 L
Hct 34.5 L
Plt Count 261
Sodium 139
Potassium 4.0
Chloride 107
Carbon Dioxide 24
BUN 25 H
Creatinine 0.5 L
Glucose 110 H
Calcium 9.2
Vital Signs:
Vital Signs
Temp Pulse Resp BP Pulse Ox
98.4 F 96 18 121/72 98
11/30/23 07:24 11/30/23 08:37 11/30/23 07:24 11/30/23 08:37 11/30/23 07:24
I&O
11/29/23 11/30/23 12/01/23
06:59 06:59 06:59
Intake Total 240 / 240 480 / 480
Output Total 300 / 300
Balance -60 / -60 480 / 480
--- NOTE | 2023-11-30 09:27 | W.PN.CARDCBS ---
Addendum entered and electronically signed by Alondra Booker DO 11/30/23 11:18:
I saw and examined the patient.
The Director Post's note was reviewed and I agree with the note.
Comment: Seen and examined lying supine and anxious to go home. Denies chest pain or pressure, shortness of breath, dizziness or headaches.
GEN: NAD, aaox3
HEENT: mmm
LUNGS: Bronchovesicular breath sounds with scattered rhonchi and faint end expiratory wheeze.
CV: Reg, S1/S2, 2/6 murmur
ABD: soft, BS+, NT/ND
EXT: No edema. Left radial site with ecchymosis, +2 radial pulse. Bilateral femoral sites intact without hematoma or bleeding
NEURO: Gross non-focal
Plan:
73-year-old female with past medical history of hypertension, hyperlipidemia, tobacco abuse with current smoking, coronary artery disease status post coronary artery bypass grafting with SOLER to LAD and saphenous vein graft to OM in April 2017 at
[facility] with prior ischemic cardiomyopathy and EF as low as 25 to 30%, since then recovered status post [employer] single-chamber ICD placed in June 2017, significant peripheral artery disease with noninvasive arterial Dopplers
from 2020 showing concern for possible right iliac stenosis resulting in mild hemodynamic impairment at rest and left popliteal/tibial stenosis resulting in moderate hemodynamic impairment at rest, CT of the chest without contrast from 02/2023 with
interval development of new slightly spiculated 18 x 12 mm right upper lobe nodule, with concern for primary bronchogenic carcinoma with several additional right lung nodules which have remained stable compared to prior from 2021 who presented this
admission with ICD firing for atrial fibrillation after multiple ATP attempts and an ICD shock with peak troponin of 17
-Cardiac catheterization November 29, 2023 with severe [place] coronary artery disease and heavily calcified coronary arteries. SOLER to LAD and SVG graft to OM patent. No stents placed
-Right heart catheterization with elevated right/left filling pressures and normal cardiac output. Elevated SVR.
-Left subclavian artery pressure 133/73 mmHg with a 60 mmHg difference in systolic compared to central aortic pressure. Upper extremity noninvasive blood pressure 91/67 mmHg with simultaneous central aortic pressure of 175/69 mmHg [85 mmHg
difference in the right upper extremity systolic pressure compared to central aortic pressure]
-Plan for goal-directed medical therapy
-Reviewed plan with patient for further vascular evaluation and referral to vascular surgery. We will provide patient with number to [facility] vascular surgery however all of her physicians are at [place] and then we have encouraged her
to speak with her air conditioning technician
-Resume Eliquis 5 mg twice daily
-Started on amiodarone with plan for 200 mg twice daily for 2 weeks then 200 mg daily
-Patient on home O2 nocturnally, 2 L/m followed by pulmonary at [place]. Nursing to assess for ambulatory O2 requirements prior to discharge
All questions were answered
Post procedure activity restrictions reviewed
Plan for discharge home with close outpatient follow-up with her air conditioning technician at [place] with recommendations for vascular evaluation soon
Disc provided with cardiac studies for patient to take to [facility]
Tobacco cessation strongly advised
Original Note:
Today's Communication / Plan
-
eager for DC
amiodarone 200mg BID for 2 weeks then 200mg daily
eliquis 5mg BID based on Cr and age
continue OP coreg, enalapril, lasix
needs OP imaging of carotids/subclavian - may need further vascular eval
home O2 eval
tobacco cessation
OP follow up with [facility] cardiology arranged 12/18
Impression / Plan
-
Primary Tableau Administrator: Dr. Olivia of [facility]
Assessment:
Presentation with attempted ATP x2, then ICD shock
Hypotension
Atrial fibrillation with RVR on arrival, concern for inappropriate shock
Elevated troponin
Leukocytosis
CAD s/p CABGx2 SOLER to LAD and SVG to OM 04/2017
prior ICM s/p [employer] single chamber ICD, with subsequent recovery in EF
HTN
HLD
COPD, with likely acute exacerbation
ongoing occasional tobacco use
PAD with known R iliac stenosis and L popliteal/tibial stenosis, on chronic cilostazol, not felt to be candidate for percutaneous stenting
Spiculated RUL nodule by imaging, other L pulm nodules
ECHO 11/28/23: EF 50-55%, stage 2 diastolic dysfunction, mod TR, PAP 43mmHg
Plan:
-Patient presented with ICD shock. Transmission from ER showed attempted ATP x 2 followed by ICD shock x 1. Upon arrival patient was noted to be in atrial fibrillation with rapid ventricular response
-ICD is single chamber however event causing shock felt most likely to be afib with RVR after review with device call center representative, however she has also had NSVT in past by device interrogation
-trop peaked at 17. Cath with patent SOLER graft and SVG to OM. She was noted to have heavily calcified [place] coronary arteries. No intervention performed, continue med therapy
-eliquis resumed post cath, new for patient this admission. also on asa and cilostazol for PAD as OP
-continue amiodarone 200mg BID x2 weeks then decrease to 200mg daily. repeat EKG today to check QTc. in SR with 1 5-beat run of NSVT on review of tele overnight.
-echo with results as above
-by cath was also noted to have significant pressure differentials in B/L UE compared to central aortic pressure (60-80 point difference). continue OP coreg, enalapril. likely needs OP imaging of carotids/subclavian through primary air conditioning technician and
may need OP vascular evaluation
-LVEDP was 30. continue OP lasix 20mg daily
-LDL 60 on lipitor 40mg HS, continue
-tobacco cessation advised
-needs home O2 eval. prior to admission was on 2L HS only
-OP follow up with Dr. Olivia of [facility] arranged
-Discussed with nursing
Progress Note - Tableau Administrator
Subjective
Date of Service: November 30, 2023
Denies chest pain, shortness of breath, palpitations. Eager for discharge
Objective
Labs:
11/30/23 04:32
11/30/23 04:32
Labs
Hgb 11.7 g/dL (12.0-16.0) L 11/30/23 04:32
Hct 34.5 % (37.0-47.0) L 11/30/23 04:32
Plt Count 261 10^3/uL (130-400) 11/30/23 04:32
Sodium 139 mmol/L (135-145) 11/30/23 04:32
Potassium 4.0 mmol/L (3.5-5.1) 11/30/23 04:32
BUN 25 mg/dl (7-17) H 11/30/23 04:32
Creatinine 0.5 mg/dL (0.6-1.0) L 11/30/23 04:32
Glucose 110 mg/dl (70-99) H 11/30/23 04:32
Troponins
11/27/23 11/28/23 11/28/23
20:17 04:35 09:03
Troponin I 0.126 H* 17.400 H* 12.900 H* D
Vital Signs and I&O:
Vital Signs
Temp Pulse Resp BP Pulse Ox
98.4 F 88 18 12172 95
11/30/23 07:24 11/30/23 09:15 11/30/23 07:24 11/30/23 08:37 11/30/23 08:30
Vital Signs
Temp Pulse Resp BP Pulse Ox
98.4 F 88 12172 95
11/30/23 07:24 11/30/23 09:15 11/30/23 07:24 11/30/23 08:37 11/30/23 08:30
Intake & Output
11/28/23 11/29/23 11/30/23 12/01/23
07:59 07:59 07:59 07:59
Intake Total 480 / 480 240 / 240 480 / 480
Output Total 300 / 300
Balance 480 / 480 -60 / -60 480 / 480
Physical Exam
Physical Exam
GEN: No distress, awake, alert, oriented x3. on supp O2
HEENT: supple, anicteric, mmm, eomi
LUNGS: mild exp wheezes
CV: Reg, S1/S2, 2/6 murmur
ABD: soft, BS+, NT/ND
EXT: No cyanosis, clubbing, edema
NEURO: Gross non-focal
SKIN: Warm, pink, dry. No rash
[2023-11-30] MEDS: VIBRAMYCIN 100 MG PO ×2 (09:39→20:43)
--- NOTE | 2023-11-30 11:04 | PTCARENOTE ---
chest xray completed.
[2023-11-30 11:14] VITALS: BP 127/73
[2023-11-30] MEDS: ELIQUIS 5 MG PO ×2 (11:30→20:41)
--- NOTE | 2023-11-30 11:34 | PTCARENOTE ---
EKG completed QTC 411
--- NOTE | 2023-11-30 12:22 | CM ---
Reviewed chart. Met with Mrs. Jimenez to review discharge plans. She states she is feeling better and is hoping to go home soon. We reviewed VNA Services. She states she does not feel she will need VNA Services. Prior to admission she resides
with her spouse in a two story townhouse with three steps to enter. She has a full flight of steps to get to bedroom/full bathroom. She has a powder room on the first floor. Prior to admission she was independent with ambulation and adls. She has
home 02 at 2 liters that she uses at night. She has a prescription plan with [facility] and [facility]. Medical work-up in progress. The discharge plan is to return home with her spouse when medically stable.
[2023-11-30 15:08] VITALS: BP 105/60
[2023-11-30 19:05] VITALS: BP 112/70
[2023-11-30] MEDS: PACERONE 200 MG PO (20:42)
[2023-11-30 22:34] VITALS: BP 112/66
[2023-11-30] MEDS: LIPITOR 40 MG PO (22:39)
[2023-11-30] MEDS: CELEXA 30 MG PO (22:39)
[2023-11-30] MEDS: ROCEPHIN 1000 MG IV (22:40)
[2023-11-30] MEDS: STERILE WATER FOR INJECTION 10 ML IV (22:41)
--- NOTE | 2023-12-01 01:23 | PTCARENOTE ---
Denies any complaints of pain or discomfort. Stated 'I just want to go home'. Groin cath sites wnl.
[2023-12-01 04:29] VITALS: BP 122/71
[2023-12-01 04:45] VITALS: BMI 16.9
[2023-12-01 05:35] LABS: Blood Urea Nitrogen 25 mg/dl (7-17); Calcium 8.9 mg/dl (8.4-10.2); Carbon Dioxide 27 mmol/L (22-30); Chloride 105 mmol/L (98-107); Estimated Creatinine Clearance 61 ml/min; Glucose 103 mg/dl (70-99); Potassium 3.5 mmol/L (3.5-5.1); Sodium 138 mmol/L (135-145); eGFR > 60.00
[2023-12-01 05:37] LABS: Hematocrit 32.6 % (37.0-47.0); Hemoglobin 11.3 g/dL (12.0-16.0); Mean Corp Hgb Conc. 34.7 g/dL (33.0-37.0); Mean Corpuscular Hgb 32.7 pg (27.0-31.0); Mean Corpuscular Volume 94.2 fL (81.0-99.0); Mean Platelet Volume 8.6 fL (7.4-10.4); Platelet Count 271 10^3/uL (130-400); Red Blood Cell Count 3.46 10^6/uL (4.20-5.40); Red Cell Dist. Width 11.9 % (11.5-14.5)
[2023-12-01 07:35] VITALS: BP 151/85
[2023-12-01 07:36] VITALS: BP 154/82
--- NOTE | 2023-12-01 07:51 | W.PN.HOSP.TC ---
Today's Communication/Plan
-
d/c after home O2 eval
Assessment / Plan
Assessment / Plan
Gen: NAD, AAOx3, appears chronically ill/malnourished.
Eyes: EOMI, PERRLA, no scleral icterus.
Neck: supple.
CV: remains RRR, +S1/S2, no m/r/g.
Resp: CTAB
Abd: +BS, soft, NT, ND
Skin: No rashes.
Neuro: remains CN 2-12 intact, non-focal.
Psych: Normal mood and affect.
CXR: Right upper lobe airspace disease suspicious for pneumonia. Mild diffuse interstitial prominence may reflect pneumonitis. Cannot rule out component of underlying chronic interstitial lung disease.
Echo: EF 50-55%, G2DD. Normal right ventricular size and function. ICD wire seen in right ventricle. Moderate tricuspid regurgitation. Estimated pulmonary artery pressure of 43mmHg assuming a right atrial pressure of 8 mmHg.
Cardiac cath (LHC/RHC) 11/29/23:
1. Severe [place] coronary artery disease with heavily calcified coronary arteries.
2. SOLER graft and saphenous vein graft to OM are patent.
3. Elevated right and left-sided filling pressures with normal cardiac output and significantly elevated systemic vascular resistance.
4. Left subclavian artery pressure of 133/73 (about a 60 mmHg difference in systolic compared to central aortic pressure)
5. Upper extremity noninvasive blood pressure of 91/67 with simultaneous central aortic pressure of 175/69 (about a 85 mmHg difference in systolic in the right upper extremity compared to central aortic pressure)
6. Left femoral artery pressure invasively of 174/74.
CXR 11/30/23: Stable right upper lobe pneumonia. Severe lower thoracic vertebral body compression fracture, age indeterminate. Recommend correlation for any point tenderness in this region.
Afib with RVR:
-ICD interrogation showed attempt of ATP @ 1704 and 1709 on 11/27/23. For formal interrogation today.
-EMS gave Cardizem but the patient became hypotensive. This was followed by IV fluids and IV Cardizem and beta-sasha in the ER without improvement. Patient also given digoxin.
-was on amiodarone gtt, now transitioned to PO Amio
-cont Eliquis
Acute NSTEMI:
-Trop peaked 17.4
-started on Eliquis prior (no heparin gtt for now)
-h/o CAD, cont ASA/statin/BB
-cardiac cath above
Sepsis, POA, due to RUL PNA:
-Leukocytosis initially resolved. Recurrent leukocytosis is likely steroid induced.
-patient afebrile
-Procal minimally elevated
-Considering minimally elevated procalcitonin and initial resolution of leukocytosis on antibiotic therapy it is reasonable to complete 5 to 7 days of antibiotics.
-currently on Rocephin/Doxy
Acute hypoxemic respiratory insufficiency due to acute COPD Exac:
-h/o 50 years tobacco abuse disorder
-was on IV Decadron, now transitioned to Prednisone, taper
-Atrovent/Xopenex PRN
-See plan for possible RUL PNA above
-pulm following
CAD:
-note, h/o CABG x 2 with SOLER to LAD and SVG to OM 04/2017
Chronic HFrEF (now with recovered EF):
-s/p [employer] single-chamber ICD placement 06/2017
Other problems:
HLD: Cont statin
GERD: Cont PPI
Essential hypertension: cont BB
Moderate protein calorie malnutrition
FULL/Eliquis
Total time spent on d/c = 33 min. This included today's physical exam, progress note, review of laboratory and diagnostic data, preparation of discharge documents and prescriptions, and discussions about the pt's hospital course and discharge plan
with the patient and other [employer] involved in the patient's care.
Anticipated Discharge: Today
Subjective/Interval History
-
Date of Service: December 01, 2023
Denies chest pain or shortness of breath.
Objective Data
-
Labs:
Laboratory Results
12/01/23
04:38
WBC 15.0 H
Hgb 11.3 L
Hct 32.6 L
Plt Count 271
Sodium 138
Potassium 3.5
Chloride 105
Carbon Dioxide 27
BUN 25 H
Creatinine 0.5 L
Glucose 103 H
Calcium 8.9
Vital Signs:
Vital Signs
Temp Pulse Resp BP Pulse Ox
98.4 F 82 18 154/82 94
12/01/23 04:27 12/01/23 07:36 12/01/23 04:27 12/01/23 07:36 12/01/23 04:27
I&O
11/30/23 12/01/23 12/02/23
06:59 06:59 06:59
Intake Total 480 / 480 960 / 960
Balance 480 / 480 960 / 960
[2023-12-01] MEDS: VIBRAMYCIN 100 MG PO (08:08)
[2023-12-01] MEDS: ASPIR LOW (ENTERIC COATED) 81 MG PO (08:08)
[2023-12-01] MEDS: PROTONIX 40 MG PO (08:08)
[2023-12-01] MEDS: COREG 3.125 MG PO (08:08)
[2023-12-01] MEDS: PLETAL 50 MG PO (08:09)
[2023-12-01] MEDS: DELTASONE 40 MG PO (08:10)
[2023-12-01] MEDS: ELIQUIS 5 MG PO (08:11)
[2023-12-01] MEDS: PACERONE 200 MG PO (08:11)
--- NOTE | 2023-12-01 08:47 | PTCARENOTE ---
Assumed care of pt from night RN. Pt received awake and alert, Ox3. VSs, CM shows NSR 70's, POX 94%/4 liters nc. Left radia, as well as r and L femoral sites remain CDI with normal CMS throughout. Pt denies any pain or discomfort, ambulating in
room.
--- NOTE | 2023-12-01 08:48 | W.PN.CARDCBS ---
Today's Communication / Plan
-
Remains in sinus rhythm. Continue amiodarone 200 mg p.o. twice daily. On December 14 she can decrease the amiodarone to 100 mg once daily. Continue Eliquis 5 mg p.o. twice daily.
Continue Coreg, atorvastatin, and aspirin for stable coronary artery disease.
Smoking cessation strongly advised.
I again told her that she has a right upper lobe nodule that could be cancer. She has an appoint with her clinical review nurse in several weeks.
Continue medical therapy for likely significant peripheral vascular disease.
Antibiotics per primary service and pulmonary.
Okay for discharge from cardiology standpoint. Has follow-up scheduled with [facility] cardiology
Impression / Plan
-
Primary Memorandum Statement Clerk: Dr. Olivia of [facility]
Assessment:
Presentation with attempted ATP x2, then ICD shock
Hypotension
Atrial fibrillation with RVR on arrival, concern for inappropriate shock
Elevated troponin
Leukocytosis
CAD s/p CABGx2 SOLER to LAD and SVG to OM 04/2017
prior ICM s/p [employer] single chamber ICD, with subsequent recovery in EF
HTN
HLD
COPD, with likely acute exacerbation
ongoing occasional tobacco use
PAD with known R iliac stenosis and L popliteal/tibial stenosis, on chronic cilostazol, not felt to be candidate for percutaneous stenting
Spiculated RUL nodule by imaging, other L pulm nodules
ECHO 11/28/23: EF 50-55%, stage 2 diastolic dysfunction, mod TR, PAP 43mmHg
Plan:
-Patient presented with ICD shock. Transmission from ER showed attempted ATP x 2 followed by ICD shock x 1. Upon arrival patient was noted to be in atrial fibrillation with rapid ventricular response
-ICD is single chamber however event causing shock felt most likely to be afib with RVR after review with device territory representative, however she has also had NSVT in past by device interrogation
-trop peaked at 17. Cath with patent SOLER graft and SVG to OM. She was noted to have heavily calcified [place] coronary arteries. No intervention performed, continue med therapy
-eliquis resumed post cath, new for patient this admission. also on asa and cilostazol for PAD as OP
-continue amiodarone 200mg BID x2 weeks then decrease to 200mg daily. EKG with stable QT interval in sinus rhythm.
-by cath was also noted to have significant pressure differentials in B/L UE compared to central aortic pressure (60-80 point difference). continue OP coreg, enalapril. likely needs OP imaging of carotids/subclavian through primary brakes inspector and
may need OP vascular evaluation
-LVEDP was 30. continue OP lasix 20mg daily
-LDL 60 on lipitor 40mg HS, continue
-tobacco cessation advised. She has a spiculated RUL lung nodule and was advised to follow-up with her pulmonary team at [place].
-needs home O2 eval. prior to admission was on 2L HS only
-OP follow up with Dr. Olivia of [facility] arranged
-Discussed with nursing
Progress Note - Memorandum Statement Clerk
Subjective
Date of Service: December 01, 2023
Overall feels well. Denies chest pains or shortness of breath.
Objective
Labs:
12/01/23 04:38
12/01/23 04:38
Labs
Hgb 11.3 g/dL (12.0-16.0) L 12/01/23 04:38
Hct 32.6 % (37.0-47.0) L 12/01/23 04:38
Plt Count 271 10^3/uL (130-400) 12/01/23 04:38
Sodium 138 mmol/L (135-145) 12/01/23 04:38
Potassium 3.5 mmol/L (3.5-5.1) 12/01/23 04:38
BUN 25 mg/dl (7-17) H 12/01/23 04:38
Creatinine 0.5 mg/dL (0.6-1.0) L 12/01/23 04:38
Glucose 103 mg/dl (70-99) H 12/01/23 04:38
Troponins
11/28/23
09:03
Troponin I 12.900 H* D
Vital Signs and I&O:
Vital Signs
Temp Pulse Resp BP Pulse Ox
98.5 F 82 16 154/82 94
12/01/23 08:11 12/01/23 08:11 12/01/23 08:11 12/01/23 08:08 12/01/23 08:40
Vital Signs
Temp Pulse Resp BP Pulse Ox
98.5 F 82 16 154/82 94
12/01/23 08:11 12/01/23 08:11 12/01/23 08:11 12/01/23 08:08 12/01/23 08:40
Intake & Output
11/29/23 11/30/23 12/01/23 12/02/23
06:59 06:59 06:59 06:59
Intake Total 240 / 240 480 / 480 960 / 960
Output Total 300 / 300
Balance -60 / -60 480 / 480 960 / 960
Physical Exam
Physical Exam
GEN: No distress, awake, Ox3
HEENT: supple, anicteric, mmm
LUNGS: scatt rhochi
CV: Reg, S1/S2, 1/6 syst LSB, no gallop
ABD: soft, BS+, NT/ND
EXT: No edema
NEURO: Gross non-focal
SKIN: No rash
[2023-12-01] MEDS: AUGMENTIN 875 MG/125 MG 1 TABLET PO (10:58)
[2023-12-01 11:26] VITALS: BP 127/74
--- NOTE | 2023-12-01 12:48 | PTCARENOTE ---
All D/C info reviewed with pt and spouse, all questions answered. Pt D/C'd home with spouse.
--- NOTE | 2023-12-01 14:12 | W.DCSUMMARY ---
Discharge Summary
Discharge Data
Date of Admission: 11/27/23
Date of Discharge: 12/01/23
-
Pending Results: No
Hospital Course
Primary diagnoses:
Atrial fibrillation with rapid ventricular response
Sepsis due to right upper lobe pneumonia
Acute hypoxemic respiratory insufficiency due to acute exacerbation of chronic obstructive pulmonary disease
Secondary diagnoses:
Coronary artery disease with h/o CABG x 2 with SOLER to LAD and SVG to OM 04/2017
Chronic heart failure with reduced ejection fraction (now with recovered EF) s/p [employer] single-chamber ICD placement 06/2017
Hyperlipidemia
Gastroesophageal reflux disease
Essential hypertension
Moderate protein calorie malnutrition
Tobacco abuse disorder
Consultants:
Cardiology
Pulmonary
Imaging:
CXR: Right upper lobe airspace disease suspicious for pneumonia. Mild diffuse interstitial prominence may reflect pneumonitis. Cannot rule out component of underlying chronic interstitial lung disease.
Echo: EF 50-55%, G2DD. Normal right ventricular size and function. ICD wire seen in right ventricle. Moderate tricuspid regurgitation. Estimated pulmonary artery pressure of 43mmHg assuming a right atrial pressure of 8 mmHg.
Cardiac cath (LHC/RHC) 11/29/23:
1. Severe [place] coronary artery disease with heavily calcified coronary arteries.
2. SOLER graft and saphenous vein graft to OM are patent.
3. Elevated right and left-sided filling pressures with normal cardiac output and significantly elevated systemic vascular resistance.
4. Left subclavian artery pressure of 133/73 (about a 60 mmHg difference in systolic compared to central aortic pressure)
5. Upper extremity noninvasive blood pressure of 91/67 with simultaneous central aortic pressure of 175/69 (about a 85 mmHg difference in systolic in the right upper extremity compared to central aortic pressure)
6. Left femoral artery pressure invasively of 174/74.
CXR 11/30/23: Stable right upper lobe pneumonia. Severe lower thoracic vertebral body compression fracture, age indeterminate. Recommend correlation for any point tenderness in this region.
73-year-old female presented with atrial fibrillation with rapid response (chief complaint was her defibrillator discharged) as outlined in the H&P done on admission. Hospital course by problem was:
Afib with RVR: EMS gave Cardizem but the patient became hypotensive. This was followed by IV fluids and IV Cardizem and beta-sasha in the ER without improvement. She was also given digoxin. The patient was found to have ATP attempts and an ICD
shock on interrogation. Patient was initially on an amiodarone drip and was then transition to oral amiodarone. She was started on Eliquis. Echocardiogram above.
Acute NSTEMI: The patient's troponin peaked 17.4. Patient had been started on Eliquis and therefore no heparin drip was used. She had a cardiac catheterization as above. The patient was given aspirin/statin/beta-sasha.
Sepsis due to right upper lobe pneumonia: Patient had a leukocytosis that initially resolved. Her recurrent leukocytosis was likely steroid-induced. She was afebrile. Procalcitonin was minimally elevated. Imaging above. Considering minimally
elevated procalcitonin and initial resolution of leukocytosis on antibiotic therapy it was decided for the patient to complete 7 days of antibiotic therapy. She was on Rocephin and doxycycline while hospitalized and transitioned to Augmentin on
discharge.
Acute on chronic hypoxemic respiratory insufficiency due to acute exacerbation of chronic obstructive pulmonary disease: The patient was on IV Decadron and transition to a prednisone taper for discharge. The patient received Xopenex and Atrovent as
needed. Patient is been on 2L [place] O2 at night prior to admission. At time of discharge she will likely need to be on oxygen [id number].
Discharge Plan
-
Patient Disposition: Home (Routine Discharge)
Discharge Diagnosis/Procedures: Atrial fibrillation with rapid response, acute non-ST elevation myocardial infarction, acute exacerbation of chronic obstructive pulmonary disease, sepsis due to right upper lobe pneumonia, cardiac catheterization
Condition: Good
Diet: Low Cholesterol, Low Sodium and Other diet
Additional Diets: Fluid restrict to 1500 cc/day
Driving Restrictions: No driving for 24 hours
Bathing Restrictions: None
Specialty Instructions: Weigh Daily- Call MD for wt gain/loss 3 lbs overnight/5 lbs in 1 week
Stand Alone Forms: DC Instructions- Cath/EP Lab
Referrals:
Nader Carlisle III, MD [Active] - in one to two weeks (evaluation of LUE arterial stenosis)
Basim Olivia MD [Non-Admitting Privileges] - 12/19/23 10:30 am (Please call with questions. Your echo appointment scheduled for 12/04 has been cancelled and you had echo here. )
Woody Goldman MD [Family Provider] - in less than 1 week
Prescriptions:
New
amoxicillin-pot clavulanate 875-125 mg Tablet
1 tab PO Q12 Qty: 6 0RF
Eliquis 5 mg Tablet
5 mg PO BID Qty: 60 0RF
amiodarone [Pacerone] 200 mg Tablet
200 mg PO BID Qty: 28 0RF
carvedilol 3.125 mg Tablet
3.125 mg PO BID Qty: 60 0RF
amiodarone 200 mg tablet
200 mg PO DAILY Qty: 30 0RF
Rx Instructions:
start 12/15/23
prednisone 10 mg tablet
10 mg PO DIRECTED Qty: 30 0RF
Rx Instructions:
Taper: 40mg daily x 3 days, 30mg daily x 3 days, 20mg daily x 3 days, 10mg daily x 3 days
Continued
multivitamin Tablet
1 tab PO DAILY
atorvastatin 40 mg Tablet
40 mg PO HS
enalapril maleate 5 mg Tablet
5 mg PO BID
cilostazol 50 mg Tablet
50 mg PO BID
aspirin 81 mg Tablet,Delayed Release (Dr/Ec)
81 mg PO DAILY
pantoprazole 40 mg Tablet,Delayed Release (Dr/Ec)
40 mg PO DAILY
furosemide 20 mg Tablet
20 mg PO DAILY
Discontinued
carvedilol 6.25 mg Tablet
6.25 mg PO BID
citalopram 20 mg Tablet
30 mg PO HS
Discharge Orders:
Discharge Patient (As Directed); Ordered 12/01/23
Ordered By: Mark Mccain
Care Plan Goals
Care Plan Goals:
Problem: Readiness for enhanced knowledge related to diagnosis and treatment plan
Goal: Understand your diagnosis and treatment plan needs, including medications if applicable.
Instructions: Know your diagnosis, underlying causes and treatment plan options, including medications if applicable. Consult with your health care team to learn about your diagnosis and treatment plan, including medications if applicable.
Discharge Date and Time
Discharge Date/Time: 12/01/23 12:49
Print Language: MALAWIAN
== END 2023-12-01 12:49 | disposition home or self-care (01) | DRG 871 ==
LOC: IVU 22:30
PROVIDERS: Internal Medicine Interventional Cardiology; Registered Nurse; ADMITTING PHYSICIAN Hospitalist; ATTENDING PHYSICIAN Internal Medicine; EMERGENCY PHYSICIAN Emergency Medicine; FAMILY PHYSICIAN Family Medicine; OTHER PHYSICIAN Internal Medicine; OTHER PHYSICIAN Internal Medicine Cardiovascular Disease
PROC: B2111ZZ Fluoroscopy of Multiple Coronary Arteries using Low Osmolar Contrast (ICD-10-PCS; 2023-11-29)
PROC: B2161ZZ Fluoroscopy of Right and Left Heart using Low Osmolar Contrast (ICD-10-PCS; 2023-11-29)
PROC: 4A023N8 Measurement of Cardiac Sampling and Pressure, Bilateral, Percutaneous Approach (ICD-10-PCS; 2023-11-29)
DX: A41.9 Sepsis, unspecified organism (principal); I21.4 Non-ST elevation (NSTEMI) myocardial infarction; J18.9 Pneumonia, unspecified organism; J96.21 Acute and chronic respiratory failure with hypoxia; J44.0 Chronic obstructive pulmonary disease with (acute) lower respiratory infection; I50.22 Chronic systolic (congestive) heart failure; E44.0 Moderate protein-calorie malnutrition; Z68.1 Body mass index [BMI] 19.9 or less, adult; I48.91 Unspecified atrial fibrillation; F17.210 Nicotine dependence, cigarettes, uncomplicated; E78.5 Hyperlipidemia, unspecified; K21.9 Gastro-esophageal reflux disease without esophagitis; I11.0 Hypertensive heart disease with heart failure; F41.9 Anxiety disorder, unspecified; I25.10 Atherosclerotic heart disease of native coronary artery without angina pectoris; Z95.1 Presence of aortocoronary bypass graft; Z82.49 Family history of ischemic heart disease and other diseases of the circulatory system
CPT/HCPCS: 71045; 71046; 80048; 80053; 80061; 81003; 83735; 83880; 84145; 84443; 84484; 85025; 85027; 85347; 86803; 93005; 93306; 93461; 94640; 99152; 99153; 99291; C1769; C1894; Q9967